=== PATIENT | male | born 1965 | race Caucasian/White ===

== ENCOUNTER 2017-03-13 12:54 | Emergency (ER) | payer MEDICAID ==
[~2017-03-13] VITALS: Ht 175.3 cm; Wt 56.8 kg
[~2017-03-13 12:54] MED LIST: DIVA500T52 PO; OLAN10TA3 PO; PARO20TA24 PO; TRAZ-147 PO
[2017-03-13 12:55] VITALS: BP 132/89
== END 2017-03-13 13:57 | disposition left against medical advice (07) ==
LOC: EMS 12:55
DX: F20.9 Schizophrenia, unspecified (principal); G89.29 Other chronic pain; F31.9 Bipolar disorder, unspecified; J44.9 Chronic obstructive pulmonary disease, unspecified; E11.9 Type 2 diabetes mellitus without complications; F17.210 Nicotine dependence, cigarettes, uncomplicated; F14.90 Cocaine use, unspecified, uncomplicated; F12.90 Cannabis use, unspecified, uncomplicated; F15.90 Other stimulant use, unspecified, uncomplicated; Z88.8 Allergy status to other drugs, medicaments and biological substances
CPT/HCPCS: 99284

== ENCOUNTER 2017-04-11 15:45 | Inpatient (IN) | payer MEDICAID ==
[~2017-04-11] VITALS: Ht 175.3 cm; Wt 55.8 kg
[2017-04-11 16:16] VITALS: BP 134/74
[2017-04-11] MEDS ORDERED: LORazepam 2 MG TABLET PO PRN (16:30)
[2017-04-11] MEDS ORDERED: ZOLPIDEM TARTRATE 10 MG TABLET PO PRN (16:30)
[2017-04-11] MEDS: DIVALPROEX SODIUM 500 MG ER TABLET PO SCH (17:13)
[2017-04-11] MEDS ORDERED: PNEUMOCOCCAL VACCINE POLYVALENT 0.5 ML VIAL [PPSV23] IM ONE (18:15)
[2017-04-12] MEDS ORDERED: MAGNESIUM HYDROXIDE SUSPENSION 30 ML UDCUP PO PRN (07:30)
[2017-04-12] MEDS ORDERED: ALBUTEROL SULFATE HFA 90 MCG/PUFF 8 GM INHALER IH PRN (07:30)
[2017-04-12] MEDS ORDERED: ONDANSETRON HCL 4 MG TABLET PO PRN (07:30)
[2017-04-12] MEDS ORDERED: BENZOCAINE/MENTHOL LOZENGE MM PRN (07:30)
[2017-04-12] MEDS ORDERED: ACETAMINOPHEN 325 MG TABLET PO PRN (07:30)
[2017-04-12] MEDS ORDERED: PETROLATUM,WHITE 71 GM JELLY TP PRN (07:30)
[2017-04-12] MEDS ORDERED: IBUPROFEN 600 MG TABLET PO PRN (07:30)
[2017-04-12] MEDS ORDERED: CloNIDine HCL 0.1 MG TABLET PO PRN (07:30)
[2017-04-12] MEDS ORDERED: LOPERAMIDE HCL 2 MG CAPSULE PO PRN (07:30)
[2017-04-12] MEDS ORDERED: MAG HYDROX/AL HYDROX/SIMETH ES 30 ML SUSPENSION UDCUP PO PRN (07:30)
[2017-04-12 08:17] VITALS: BP 133/92
[2017-04-12] MEDS: NICOTINE 21 MG/24 HOUR PATCH TD SCH (09:00)
[2017-04-12 09:12] LABS: BASOPHILS % (AUTO) 0.7 % (0.0-2.0); EOSINOPHILS % (AUTO) 5.5 % (1.0-6.0); HEMATOCRIT 39.1 % (41-53); LYMPHOCYTES # (AUTO) 1.3 K/uL (1.0-4.8); LYMPHOCYTES % (AUTO) 32.1 % (22.0-44.0); MEAN CORPUSCULAR HEMOGLOBIN 31.1 pg (26.0-34.0); MEAN CORPUSCULAR HGB CONC 33.4 G/dL (31.0-37.0); MEAN CORPUSCULAR VOLUME 93 fL (80-100); MONOCYTES # (AUTO) 0.3 K/uL (0.1-1.0); MONOCYTES % (AUTO) 8.4 % (2.0-9.0); NEUTROPHILS # (AUTO) 2.1 K/uL (1.8-7.7); NEUTROPHILS % (AUTO) 53.3 % (40.0-70.0); PLATELET COUNT (AUTO) 260 K/uL (150-450); RED BLOOD CELL COUNT(AUTO) 4.19 MIL/uL (4.50-5.90); WHITE BLOOD COUNT (AUTO) 3.9 K/uL (4.5-11.0)
[2017-04-12 09:41] LABS: HEMOGLOBIN A1C 5.7 % (4.5-6.2)
[2017-04-12 09:45] LABS: ALANINE AMINOTRANSFERASE 23 U/L (12-78); ALBUMIN 3.3 g/dL (3.4-5.0); ANION GAP 6 mmol/L (8-16); ASPARTATE AMINOTRANSFERASE 17 U/L (15-37); BILIRUBIN,TOTAL 0.2 mg/dL (0.1-1.0); CALCIUM, TOTAL 8.5 mg/dL (8.8-10.5); CARBON DIOXIDE 30 mmol/L (22-29); CHLORIDE 104 mmol/L (98-107); CHOL/HDL RATIO 2.6 (4.2-7.3); CREATININE 0.57 mg/dL (0.60-1.30); GLOMERULAR FILTR. RATE CALC > 60 mL/min (>60); POTASSIUM 4.5 mmol/L (3.5-5.1); SODIUM SERUM 140 mmol/L (136-145); THYROID STIMULATING HORMONE 1.28 uIU/mL (0.36-3.74); UREA NITROGEN, BLOOD 10 mg/dL (7-18)
[2017-04-12] MEDS: DIVALPROEX SODIUM 500 MG ER TABLET PO SCH ×2 (09:47→16:14)
[2017-04-12] MEDS: MULTIVITAMINS WITH MINERALS, THERAPEUTIC TABLET PO SCH (09:47)
[2017-04-12 10:02] LABS: APPEARANCE,URINE CLOUDY (CLEAR); GLUCOSE, URINE (UA) NEGATIVE (NEGATIVE); KETONES,URINE TRACE mg/dL (NEGATIVE); LEUKOCYTE ESTERASE ,URINE NEGATIVE (NEGATIVE); OCCULT BLOOD,URINE NEGATIVE (NEGATIVE); PROTEIN,URINE NEGATIVE (NEGATIVE)
[2017-04-12 10:16] LABS: ADD UA MICROSCOPIC YES
[2017-04-12 12:53] LABS: RBC,URINE None Seen /HPF (0-2); SQUAMOUS EPITHELIAL CELL,UR None Seen /LPF (None Seen); WBC,URINE 0-2 /HPF (0-5)
[2017-04-12 12:54] LABS: CALCIUM OXALATE CRYSTALS,UR Many /LPF (None Seen)
[2017-04-12 16:38] VITALS: BP 126/83
[2017-04-13 01:50] VITALS: BP 136/97
[2017-04-13 08:49] VITALS: BP 129/82
[2017-04-13] MEDS: NICOTINE 21 MG/24 HOUR PATCH TD SCH (09:28)
[2017-04-13] MEDS: DIVALPROEX SODIUM 500 MG ER TABLET PO SCH ×2 (09:28→16:04)
[2017-04-13] MEDS: MULTIVITAMINS WITH MINERALS, THERAPEUTIC TABLET PO SCH (09:28)
[2017-04-13] MEDS: MUPIROCIN CALCIUM 2% 15 GM CREAM TP SCH ×2 (10:30→16:04)
[2017-04-13 16:13] VITALS: BP 120/84
[2017-04-14 01:29] VITALS: BP 137/78
[2017-04-14 08:36] VITALS: BP 118/74
[2017-04-14] MEDS: PARoxetine HCL 20 MG TABLET PO SCH (09:02)
[2017-04-14] MEDS: MULTIVITAMINS WITH MINERALS, THERAPEUTIC TABLET PO SCH (09:02)
[2017-04-14] MEDS: NICOTINE 21 MG/24 HOUR PATCH TD SCH (09:02)
[2017-04-14] MEDS: DIVALPROEX SODIUM 500 MG ER TABLET PO SCH ×2 (09:02→17:18)
[2017-04-14] MEDS: BACITRACIN 28.4 GM OINTMENT TP PRN ×2 (09:03→09:04)
[2017-04-14] MEDS: MUPIROCIN CALCIUM 2% 15 GM CREAM TP SCH ×2 (09:05→17:18)
[2017-04-14 16:24] VITALS: BP 121/86
[2017-04-15 01:07] VITALS: BP 134/79
[2017-04-15 08:19] VITALS: BP 128/76
[2017-04-15] MEDS: MULTIVITAMINS WITH MINERALS, THERAPEUTIC TABLET PO SCH (09:10)
[2017-04-15] MEDS: NICOTINE 21 MG/24 HOUR PATCH TD SCH (09:10)
[2017-04-15] MEDS: DIVALPROEX SODIUM 500 MG ER TABLET PO SCH (09:11)
[2017-04-15] MEDS: PARoxetine HCL 20 MG TABLET PO SCH (09:11)
[2017-04-15] MEDS: MUPIROCIN CALCIUM 2% 15 GM CREAM TP SCH (09:11)
[2017-04-15] MEDS ORDERED: MULT-1203 PO (10:26)
[2017-04-15] MEDS ORDERED: MUPI15CR TP (10:26)
[2017-04-15] MEDS ORDERED: PARO20TA24 PO (10:26)
== END 2017-04-15 10:35 | disposition home or self-care (01) | DRG 754 ==
LOC: B2S 16:23
PROVIDERS: ADMIT Psychiatry & Neurology Child & Adolescent Psychiatry; ATTEND Psychiatry & Neurology Child & Adolescent Psychiatry
PROC: 3E0234Z Introduction of Serum, Toxoid and Vaccine into Muscle, Percutaneous Approach (ICD-10-PCS; principal; 2017-04-11)
DX: F32.9 Major depressive disorder, single episode, unspecified (principal); E44.1 Mild protein-calorie malnutrition; R45.851 Suicidal ideations; F25.0 Schizoaffective disorder, bipolar type; F17.200 Nicotine dependence, unspecified, uncomplicated; Z71.6 Tobacco abuse counseling; G47.00 Insomnia, unspecified; J44.9 Chronic obstructive pulmonary disease, unspecified; K21.9 Gastro-esophageal reflux disease without esophagitis; K59.00 Constipation, unspecified; Z59.0 Homelessness; Z82.5 Family history of asthma and other chronic lower respiratory diseases; Z22.322 Carrier or suspected carrier of Methicillin resistant Staphylococcus aureus; Z88.8 Allergy status to other drugs, medicaments and biological substances; Z23 Encounter for immunization
CPT/HCPCS: 80307; 82306; 83036; 84439; 84443; 87081

== ENCOUNTER 2018-01-20 12:19 | Inpatient (IN) | payer MEDICAID ==
[~2018-01-20 12:19] MED LIST changes: +MULT-1203 PO; +MUPI15CR TP; -OLAN10TA3 PO; -TRAZ-147 PO
[2018-01-20 14:20] VITALS: BP 119/90
[2018-01-20] MEDS ORDERED: LOPERAMIDE HCL 2 MG CAPSULE PO PRN (15:15)
[2018-01-20] MEDS ORDERED: TUBERCULIN, PURIFIED PROTEIN DERIVATIVE 5 TU/0.1 ML SYG ID ONE (15:15)
[2018-01-20] MEDS ORDERED: LORazepam 2 MG TABLET PO PRN (15:15)
[2018-01-20] MEDS ORDERED: ACETAMINOPHEN 325 MG TABLET PO PRN (15:15)
[2018-01-20] MEDS ORDERED: PROMETHAZINE HCL 25 MG TABLET PO PRN (15:15)
[2018-01-20] MEDS ORDERED: OLANZapine 5 MG RAPDIS TABLET PO PRN (15:15)
[2018-01-20] MEDS ORDERED: ZOLPIDEM TARTRATE 10 MG TABLET PO PRN (15:15)
[2018-01-20] MEDS ORDERED: HydrOXYzine PAMOATE 50 MG CAPSULE PO PRN (15:15)
[2018-01-20] MEDS ORDERED: MAGNESIUM HYDROXIDE SUSPENSION 30 ML UDCUP PO PRN (15:15)
[2018-01-20] MEDS ORDERED: MAG HYDROX/AL HYDROX/SIMETH ES 30 ML SUSPENSION UDCUP PO PRN (15:15)
[2018-01-20] MEDS ORDERED: GuaiFENesin/D-METHORPHAN [SUGAR-FREE] 200-20MG/10 ML SYRUP UDCUP PO PRN (15:15)
[2018-01-20] MEDS: THIAMINE HCL 100 MG TABLET PO SCH (16:56)
[2018-01-20] MEDS ORDERED: PNEUMOCOCCAL VACCINE POLYVALENT 0.5 ML VIAL [PPSV23] IM ONE (17:45)
[2018-01-20] MEDS ORDERED: IBUPROFEN 600 MG TABLET PO PRN (18:45)
[2018-01-20] MEDS ORDERED: CloNIDine HCL 0.1 MG TABLET PO PRN (18:45)
[2018-01-20] MEDS ORDERED: BENZOCAINE/MENTHOL LOZENGE MM PRN (18:45)
[2018-01-20] MEDS ORDERED: BACITRACIN 28.4 GM OINTMENT TP PRN (18:45)
[2018-01-20] MEDS ORDERED: PETROLATUM,WHITE 71 GM JELLY TP PRN (18:45)
[2018-01-20] MEDS ORDERED: ALBUTEROL SULFATE HFA 90 MCG/PUFF 8 GM INHALER IH PRN ×2 (18:45)
[2018-01-20] MEDS ORDERED: ONDANSETRON HCL 4 MG TABLET PO PRN (18:45)
[2018-01-20] MEDS: DIVALPROEX SODIUM 500 MG ER TABLET PO SCH (20:18)
[2018-01-20] MEDS ORDERED: OLANZapine 5 MG RAPDIS TABLET PO SCH (21:00)
[2018-01-21 06:17] VITALS: BP 126/82
[2018-01-21 08:32] LABS: BASOPHILS % (AUTO) 1.8 % (0.0-2.0); HEMATOCRIT 39.7 % (41-53); HEMOGLOBIN 13.4 g/dL (13.5-17.5); LYMPHOCYTES # (AUTO) 1.4 K/uL (1.0-4.8); LYMPHOCYTES % (AUTO) 26.6 % (22.0-44.0); MEAN CORPUSCULAR HEMOGLOBIN 30.4 pg (26.0-34.0); MEAN CORPUSCULAR HGB CONC 33.9 G/dL (31.0-37.0); MEAN CORPUSCULAR VOLUME 90 fL (80-100); MONOCYTES # (AUTO) 0.5 K/uL (0.1-1.0); MONOCYTES % (AUTO) 9.2 % (2.0-9.0); NEUTROPHILS # (AUTO) 2.9 K/uL (1.8-7.7); NEUTROPHILS % (AUTO) 56.4 % (40.0-70.0); PLATELET COUNT (AUTO) 277 K/uL (150-450); RED BLOOD CELL COUNT(AUTO) 4.42 MIL/uL (4.50-5.90); RED CELL DISTRIBUTION WIDTH 14.6 % (11.5-14.5)
[2018-01-21] MEDS: NALTREXONE HCL 50 MG TABLET PO SCH (08:45)
[2018-01-21] MEDS: OMEPRAZOLE 20 MG CAPSULE PO SCH (08:45)
[2018-01-21] MEDS: DOCUSATE SODIUM 100 MG CAPSULE PO SCH (08:45)
[2018-01-21] MEDS: THIAMINE HCL 100 MG TABLET PO SCH ×2 (08:45→16:19)
[2018-01-21] MEDS: FOLIC ACID 1 MG TABLET PO SCH (08:45)
[2018-01-21] MEDS: PARoxetine HCL 20 MG TABLET PO SCH (08:45)
[2018-01-21] MEDS: MULTIVITAMINS WITH MINERALS, THERAPEUTIC TABLET PO SCH (08:45)
[2018-01-21 08:46] LABS: HEMOGLOBIN A1C 6.2 % (4.5-6.2)
[2018-01-21] MEDS: MUPIROCIN CALCIUM 2% 22 GM OINTMENT NASAL SCH ×2 (08:46→16:48)
[2018-01-21 08:47] VITALS: BP 138/80
[2018-01-21 09:09] LABS: ALANINE AMINOTRANSFERASE 24 U/L (12-78); ALBUMIN 3.2 g/dL (3.4-5.0); ALKALINE PHOSPHATASE 93 U/L (46-116); ANION GAP 6 mmol/L (8-16); ASPARTATE AMINOTRANSFERASE 15 U/L (15-37); CARBON DIOXIDE 31 mmol/L (22-29); CHLORIDE 104 mmol/L (98-107); CHOL/HDL RATIO 2.9 (4.2-7.3); CHOLESTEROL 134 mg/dL (131-200); CREATININE 0.61 mg/dL (0.60-1.30); FREE T4 (FREE THYROXINE) 0.85 ng/dL (0.76-1.46); GLOMERULAR FILTR. RATE CALC > 60 mL/min (>60); GLUCOSE,RANDOM 91 mg/dL (70-110); HDL CHOLESTEROL 47 mg/dL (40-60); LDL CHOL (CALC.) 80 mg/dL (0-130); POTASSIUM 4.4 mmol/L (3.5-5.1); SODIUM SERUM 141 mmol/L (136-145); THYROID STIMULATING HORMONE 3.33 uIU/mL (0.36-3.74); TOTAL PROTEIN, SERUM 6.7 g/dL (6.4-8.2); TRIGLYCERIDES 35 mg/dL (15-150); UREA NITROGEN, BLOOD 13 mg/dL (7-18)
[2018-01-21 09:27] LABS: BILIRUBIN,TOTAL < 0.1 mg/dL (0.1-1.0)
[2018-01-21 16:22] VITALS: BP 131/71
[2018-01-21] MEDS: DIVALPROEX SODIUM 500 MG ER TABLET PO SCH (20:24)
[2018-01-21] MEDS: OLANZapine 10 MG RAPDIS TABLET PO SCH (20:24)
[2018-01-22 04:56] VITALS: BP 134/76
[2018-01-22 08:08] VITALS: BP 130/80
[2018-01-22] MEDS: MULTIVITAMINS WITH MINERALS, THERAPEUTIC TABLET PO SCH (08:55)
[2018-01-22] MEDS: OMEPRAZOLE 20 MG CAPSULE PO SCH (08:56)
[2018-01-22] MEDS: THIAMINE HCL 100 MG TABLET PO SCH ×2 (08:56→16:07)
[2018-01-22] MEDS: DOCUSATE SODIUM 100 MG CAPSULE PO SCH (08:56)
[2018-01-22] MEDS: NALTREXONE HCL 50 MG TABLET PO SCH (08:56)
[2018-01-22] MEDS: PARoxetine HCL 20 MG TABLET PO SCH (08:56)
[2018-01-22] MEDS: MUPIROCIN CALCIUM 2% 22 GM OINTMENT NASAL SCH ×2 (08:56→16:08)
[2018-01-22] MEDS: FOLIC ACID 1 MG TABLET PO SCH (08:56)
[2018-01-22 16:52] VITALS: BP 135/95
[2018-01-22] MEDS: DIVALPROEX SODIUM 250 MG ER TABLET PO SCH (20:40)
[2018-01-22] MEDS: DIVALPROEX SODIUM 500 MG ER TABLET PO SCH (20:41)
[2018-01-22] MEDS: OLANZapine 10 MG RAPDIS TABLET PO SCH (20:41)
[2018-01-23 05:45] VITALS: BP 124/80
[2018-01-23] MEDS: PARoxetine HCL 20 MG TABLET PO SCH (08:40)
[2018-01-23] MEDS: OMEPRAZOLE 20 MG CAPSULE PO SCH (08:41)
[2018-01-23] MEDS: FOLIC ACID 1 MG TABLET PO SCH (08:41)
[2018-01-23] MEDS: DOCUSATE SODIUM 100 MG CAPSULE PO SCH (08:41)
[2018-01-23] MEDS: THIAMINE HCL 100 MG TABLET PO SCH ×2 (08:41→16:14)
[2018-01-23] MEDS: MULTIVITAMINS WITH MINERALS, THERAPEUTIC TABLET PO SCH (08:41)
[2018-01-23] MEDS: NALTREXONE HCL 50 MG TABLET PO SCH (08:41)
[2018-01-23 08:50] VITALS: BP 129/87
[2018-01-23] MEDS: MUPIROCIN CALCIUM 2% 22 GM OINTMENT NASAL SCH ×2 (10:16→16:14)
[2018-01-23 16:09] VITALS: BP 131/82
[2018-01-23] MEDS: OLANZapine 10 MG RAPDIS TABLET PO SCH (20:32)
[2018-01-23] MEDS: DIVALPROEX SODIUM 500 MG ER TABLET PO SCH (20:32)
[2018-01-23] MEDS: DIVALPROEX SODIUM 250 MG ER TABLET PO SCH (20:32)
[2018-01-24 05:52] VITALS: BP 126/82
[2018-01-24 08:44] VITALS: BP 116/63
[2018-01-24] MEDS: NALTREXONE HCL 50 MG TABLET PO SCH (09:46)
[2018-01-24] MEDS: THIAMINE HCL 100 MG TABLET PO SCH ×2 (09:46→16:37)
[2018-01-24] MEDS: FOLIC ACID 1 MG TABLET PO SCH (09:46)
[2018-01-24] MEDS: MULTIVITAMINS WITH MINERALS, THERAPEUTIC TABLET PO SCH (09:46)
[2018-01-24] MEDS: DOCUSATE SODIUM 100 MG CAPSULE PO SCH (09:47)
[2018-01-24] MEDS: OMEPRAZOLE 20 MG CAPSULE PO SCH (09:47)
[2018-01-24] MEDS: PARoxetine HCL 20 MG TABLET PO SCH (09:48)
[2018-01-24] MEDS: MUPIROCIN CALCIUM 2% 22 GM OINTMENT NASAL SCH ×2 (11:09→16:37)
[2018-01-24 16:07] VITALS: BP 132/78
[2018-01-24] MEDS: DIVALPROEX SODIUM 250 MG ER TABLET PO SCH (20:11)
[2018-01-24] MEDS: DIVALPROEX SODIUM 500 MG ER TABLET PO SCH (20:11)
[2018-01-24] MEDS: OLANZapine 10 MG RAPDIS TABLET PO SCH (20:12)
[2018-01-25 06:12] VITALS: BP 140/89
[2018-01-25 08:08] VITALS: BP 123/73
[2018-01-25] MEDS: MUPIROCIN CALCIUM 2% 22 GM OINTMENT NASAL SCH ×2 (09:27→16:10)
[2018-01-25] MEDS: PARoxetine HCL 20 MG TABLET PO SCH (09:28)
[2018-01-25] MEDS: THIAMINE HCL 100 MG TABLET PO SCH ×2 (09:28→16:09)
[2018-01-25] MEDS: MULTIVITAMINS WITH MINERALS, THERAPEUTIC TABLET PO SCH (09:28)
[2018-01-25] MEDS: DOCUSATE SODIUM 100 MG CAPSULE PO SCH (09:28)
[2018-01-25] MEDS: FOLIC ACID 1 MG TABLET PO SCH (09:28)
[2018-01-25] MEDS: OMEPRAZOLE 20 MG CAPSULE PO SCH (09:28)
[2018-01-25] MEDS: NALTREXONE HCL 50 MG TABLET PO SCH (09:29)
[2018-01-25 16:01] VITALS: BP 113/68
[2018-01-25] MEDS: DIVALPROEX SODIUM 250 MG ER TABLET PO SCH (20:10)
[2018-01-25] MEDS: OLANZapine 10 MG RAPDIS TABLET PO SCH (20:10)
[2018-01-25] MEDS: DIVALPROEX SODIUM 500 MG ER TABLET PO SCH (20:10)
[2018-01-26 06:52] VITALS: BP 110/68
[2018-01-26 08:25] VITALS: BP 120/73
[2018-01-26] MEDS: MUPIROCIN CALCIUM 2% 22 GM OINTMENT NASAL SCH ×2 (08:49→16:19)
[2018-01-26] MEDS: PARoxetine HCL 20 MG TABLET PO SCH (08:50)
[2018-01-26] MEDS: THIAMINE HCL 100 MG TABLET PO SCH ×2 (08:50→16:19)
[2018-01-26] MEDS: OMEPRAZOLE 20 MG CAPSULE PO SCH (08:50)
[2018-01-26] MEDS: MULTIVITAMINS WITH MINERALS, THERAPEUTIC TABLET PO SCH (08:50)
[2018-01-26] MEDS: DOCUSATE SODIUM 100 MG CAPSULE PO SCH (08:50)
[2018-01-26] MEDS: NALTREXONE HCL 50 MG TABLET PO SCH (08:51)
[2018-01-26] MEDS: FOLIC ACID 1 MG TABLET PO SCH (08:51)
[2018-01-26 16:17] VITALS: BP 123/82
[2018-01-26] MEDS: DIVALPROEX SODIUM 500 MG ER TABLET PO SCH (20:30)
[2018-01-26] MEDS: DIVALPROEX SODIUM 250 MG ER TABLET PO SCH (20:30)
[2018-01-26] MEDS: OLANZapine 10 MG RAPDIS TABLET PO SCH (20:30)
[2018-01-27 05:17] VITALS: BP 125/76
[2018-01-27 08:00] VITALS: BP 121/75
[2018-01-27] MEDS: DOCUSATE SODIUM 100 MG CAPSULE PO SCH (09:53)
[2018-01-27] MEDS: THIAMINE HCL 100 MG TABLET PO SCH ×2 (09:53→16:49)
[2018-01-27] MEDS: MULTIVITAMINS WITH MINERALS, THERAPEUTIC TABLET PO SCH (09:54)
[2018-01-27] MEDS: OMEPRAZOLE 20 MG CAPSULE PO SCH (09:54)
[2018-01-27] MEDS: PARoxetine HCL 20 MG TABLET PO SCH (09:54)
[2018-01-27] MEDS: NALTREXONE HCL 50 MG TABLET PO SCH (09:54)
[2018-01-27] MEDS: FOLIC ACID 1 MG TABLET PO SCH (09:54)
[2018-01-27 16:26] VITALS: BP 125/69
[2018-01-27] MEDS: OLANZapine 10 MG RAPDIS TABLET PO SCH (20:16)
[2018-01-27] MEDS: DIVALPROEX SODIUM 250 MG ER TABLET PO SCH (20:16)
[2018-01-27] MEDS: DIVALPROEX SODIUM 500 MG ER TABLET PO SCH (20:16)
[2018-01-28 07:04] VITALS: BP 140/80
[2018-01-28 08:39] VITALS: BP 125/77
[2018-01-28] MEDS: OMEPRAZOLE 20 MG CAPSULE PO SCH (08:42)
[2018-01-28] MEDS: THIAMINE HCL 100 MG TABLET PO SCH ×2 (08:42→16:12)
[2018-01-28] MEDS: NALTREXONE HCL 50 MG TABLET PO SCH (08:42)
[2018-01-28] MEDS: FOLIC ACID 1 MG TABLET PO SCH (08:42)
[2018-01-28] MEDS: MULTIVITAMINS WITH MINERALS, THERAPEUTIC TABLET PO SCH (08:42)
[2018-01-28] MEDS: DOCUSATE SODIUM 100 MG CAPSULE PO SCH (08:43)
[2018-01-28] MEDS: PARoxetine HCL 20 MG TABLET PO SCH (08:43)
[2018-01-28] MEDS ORDERED: PARO-37 PO (15:07)
[2018-01-28] MEDS ORDERED: OLAN10TA22 PO (15:07)
[2018-01-28] MEDS ORDERED: DIVA250T45 PO (15:07)
[2018-01-28] MEDS ORDERED: NALT50TA PO (15:07)
[2018-01-28] MEDS ORDERED: DIVA500T52 PO (15:07)
[2018-01-28 16:07] VITALS: BP 127/70
[2018-01-28] MEDS: DIVALPROEX SODIUM 250 MG ER TABLET PO SCH (20:02)
[2018-01-28] MEDS: OLANZapine 10 MG RAPDIS TABLET PO SCH (20:02)
[2018-01-28] MEDS: DIVALPROEX SODIUM 500 MG ER TABLET PO SCH (20:02)
[2018-01-29 06:03] VITALS: BP 129/86
[2018-01-29 08:28] VITALS: BP 117/79
[2018-01-29] MEDS: FOLIC ACID 1 MG TABLET PO SCH (08:53)
[2018-01-29] MEDS: OMEPRAZOLE 20 MG CAPSULE PO SCH (08:53)
[2018-01-29] MEDS: PARoxetine HCL 20 MG TABLET PO SCH (08:53)
[2018-01-29] MEDS: DOCUSATE SODIUM 100 MG CAPSULE PO SCH (08:53)
[2018-01-29] MEDS: THIAMINE HCL 100 MG TABLET PO SCH (08:53)
[2018-01-29] MEDS: NALTREXONE HCL 50 MG TABLET PO SCH (08:54)
[2018-01-29] MEDS: MULTIVITAMINS WITH MINERALS, THERAPEUTIC TABLET PO SCH (08:54)
== END 2018-01-29 13:15 | disposition home or self-care (01) | DRG 750 ==
LOC: B2S 14:26
PROVIDERS: ADMIT Psychiatry & Neurology Psychiatry; ATTEND Psychiatry & Neurology Psychiatry
DX: F25.9 Schizoaffective disorder, unspecified (principal); E44.1 Mild protein-calorie malnutrition; R45.851 Suicidal ideations; J44.9 Chronic obstructive pulmonary disease, unspecified; F17.210 Nicotine dependence, cigarettes, uncomplicated; G47.00 Insomnia, unspecified; K21.9 Gastro-esophageal reflux disease without esophagitis; K59.00 Constipation, unspecified; Z59.0 Homelessness; Z79.899 Other long term (current) drug therapy; Z82.5 Family history of asthma and other chronic lower respiratory diseases; Z91.19 Patient's noncompliance with other medical treatment and regimen; Z91.5 Personal history of self-harm; Z88.8 Allergy status to other drugs, medicaments and biological substances
CPT/HCPCS: 83036; 84439; 84443; 86592; 87081

== ENCOUNTER 2018-02-13 15:22 | Inpatient (IN) | payer MEDICAID ==
[~2018-02-13] VITALS: Ht 175.3 cm; Wt 57.6 kg
[~2018-02-13 15:22] MED LIST changes: +DIVA250T45 PO; -MULT-1203 PO; -MUPI15CR TP; +NALT50TA PO; +OLAN10TA22 PO; +PARO-37 PO; -PARO20TA24 PO
[2018-02-13 16:21] LABS: BASOPHILS % (AUTO) 0.8 % (0.0-2.0); HEMATOCRIT 35.4 % (41-53); HEMOGLOBIN 11.9 g/dL (13.5-17.5); LYMPHOCYTES # (AUTO) 0.9 K/uL (1.0-4.8); LYMPHOCYTES % (AUTO) 21.5 % (22.0-44.0); MEAN CORPUSCULAR HEMOGLOBIN 30.4 pg (26.0-34.0); MEAN CORPUSCULAR HGB CONC 33.5 G/dL (31.0-37.0); MEAN CORPUSCULAR VOLUME 91 fL (80-100); MONOCYTES # (AUTO) 0.3 K/uL (0.1-1.0); MONOCYTES % (AUTO) 7.6 % (2.0-9.0); NEUTROPHILS # (AUTO) 2.9 K/uL (1.8-7.7); NEUTROPHILS % (AUTO) 66.1 % (40.0-70.0); PLATELET COUNT (AUTO) 254 K/uL (150-450)
[2018-02-13 16:31] LABS: ANION GAP 10 mmol/L (8-16); CALCIUM, TOTAL 8.9 mg/dL (8.8-10.5); CARBON DIOXIDE 27 mmol/L (22-29); CHLORIDE 102 mmol/L (98-107); CREATININE 0.73 mg/dL (0.60-1.30); GLOMERULAR FILTR. RATE CALC > 60 mL/min (>60); GLUCOSE,RANDOM 117 mg/dL (70-110); POTASSIUM 4.2 mmol/L (3.5-5.1); SODIUM SERUM 139 mmol/L (136-145); UREA NITROGEN, BLOOD 11 mg/dL (7-18)
[2018-02-13 16:37] LABS: ALANINE AMINOTRANSFERASE 34 U/L (12-78); ALBUMIN 3.4 g/dL (3.4-5.0); ALKALINE PHOSPHATASE 95 U/L (46-116); ASPARTATE AMINOTRANSFERASE 22 U/L (15-37); BILIRUBIN,TOTAL 0.3 mg/dL (0.1-1.0); TOTAL PROTEIN, SERUM 6.8 g/dL (6.4-8.2)
[2018-02-13 16:43] LABS: AMPHET/METH SCREEN,URINE NEGATIVE (NEGATIVE); BARBITURATE SCREEN, URINE NEGATIVE (NEGATIVE); BENZODIAZEPINES SCREEN,URINE NEGATIVE (NEGATIVE); CANNABINOID SCREEN,URINE POSITIVE (NEGATIVE); COCAINE SCREEN,URINE NEGATIVE (NEGATIVE); METHADONE SCREEN, URINE NEGATIVE (NEGATIVE); OPIATE SCREEN,URINE NEGATIVE (NEGATIVE); PHENCYCLIDINE SCREEN,URINE NEGATIVE (NEGATIVE)
[2018-02-13] MEDS ORDERED: LORazepam 2 MG TABLET PO PRN ×2 (18:00→19:00)
[2018-02-13] MEDS ORDERED: ZOLPIDEM TARTRATE 10 MG TABLET PO PRN ×2 (18:00→19:00)
[2018-02-13] MEDS ORDERED: LORazepam 2 MG TABLET PO ONE (18:15)
[2018-02-13] MEDS ORDERED: OLANZapine 5 MG RAPDIS TABLET PO PRN (19:00)
[2018-02-13 19:31] LABS: VALPROIC ACID < 3 mcg/mL (50-100)
[2018-02-13 20:03] VITALS: BP 128/87
[2018-02-13] MEDS: DIVALPROEX SODIUM 250 MG ER TABLET PO SCH (21:04)
[2018-02-13] MEDS: OLANZapine 7.5 MG TABLET PO SCH (21:05)
[2018-02-13] MEDS ORDERED: ONDANSETRON HCL 4 MG TABLET PO PRN (21:30)
[2018-02-13] MEDS ORDERED: LOPERAMIDE HCL 2 MG CAPSULE PO PRN (21:30)
[2018-02-13] MEDS ORDERED: PETROLATUM,WHITE 71 GM JELLY TP PRN (21:30)
[2018-02-13] MEDS ORDERED: ALBUTEROL SULFATE HFA 90 MCG/PUFF 8 GM INHALER IH PRN (21:30)
[2018-02-13] MEDS ORDERED: BACITRACIN 28.4 GM OINTMENT TP PRN (21:30)
[2018-02-13] MEDS ORDERED: MAG HYDROX/AL HYDROX/SIMETH ES 30 ML SUSPENSION UDCUP PO PRN (21:30)
[2018-02-13] MEDS ORDERED: BENZOCAINE/MENTHOL LOZENGE MM PRN (21:30)
[2018-02-13] MEDS ORDERED: CloNIDine HCL 0.1 MG TABLET PO PRN (21:30)
[2018-02-13] MEDS ORDERED: ACETAMINOPHEN 325 MG TABLET PO PRN (21:30)
[2018-02-13] MEDS ORDERED: MAGNESIUM HYDROXIDE SUSPENSION 30 ML UDCUP PO PRN (21:30)
[2018-02-13] MEDS ORDERED: IBUPROFEN 600 MG TABLET PO PRN (21:30)
[2018-02-13 22:06] LABS: APPEARANCE,URINE CLEAR (CLEAR); BILIRUBIN,URINE NEGATIVE (NEGATIVE); GLUCOSE, URINE (UA) NEGATIVE (NEGATIVE); KETONES,URINE NEGATIVE (NEGATIVE); LEUKOCYTE ESTERASE ,URINE NEGATIVE (NEGATIVE); NITRATE,URINE NEGATIVE (NEGATIVE); OCCULT BLOOD,URINE NEGATIVE (NEGATIVE); PROTEIN,URINE NEGATIVE (NEGATIVE); UROBILINOGEN,URINE 0.2 mg/dL (<=1.0)
[2018-02-14] MEDS: DOCUSATE SODIUM 100 MG CAPSULE PO SCH (09:01)
[2018-02-14] MEDS: OMEPRAZOLE 20 MG CAPSULE PO SCH (09:01)
[2018-02-14] MEDS: PARoxetine HCL 20 MG TABLET PO SCH (09:01)
[2018-02-14 10:08] VITALS: BP 164/95
[2018-02-14 17:10] VITALS: BP 104/68
[2018-02-14] MEDS: DIVALPROEX SODIUM 250 MG ER TABLET PO SCH (21:03)
[2018-02-14] MEDS: OLANZapine 7.5 MG TABLET PO SCH (21:04)
[2018-02-15 08:49] VITALS: BP 143/100
[2018-02-15] MEDS: DOCUSATE SODIUM 100 MG CAPSULE PO SCH (10:28)
[2018-02-15] MEDS: OMEPRAZOLE 20 MG CAPSULE PO SCH (10:28)
[2018-02-15] MEDS: NALTREXONE HCL 50 MG TABLET PO SCH (10:29)
[2018-02-15] MEDS: PARoxetine HCL 20 MG TABLET PO SCH (10:29)
[2018-02-15 16:50] VITALS: BP 123/78
[2018-02-15] MEDS: MUPIROCIN CALCIUM 2% 15 GM CREAM TP SCH (17:21)
[2018-02-15] MEDS: DIVALPROEX SODIUM 250 MG ER TABLET PO SCH (20:59)
[2018-02-15] MEDS: OLANZapine 7.5 MG TABLET PO SCH (20:59)
[2018-02-16 08:15] VITALS: BP 120/73
[2018-02-16] MEDS: PARoxetine HCL 20 MG TABLET PO SCH (09:52)
[2018-02-16] MEDS: OMEPRAZOLE 20 MG CAPSULE PO SCH (09:52)
[2018-02-16] MEDS: NALTREXONE HCL 50 MG TABLET PO SCH (09:52)
[2018-02-16] MEDS: MUPIROCIN CALCIUM 2% 15 GM CREAM TP SCH ×2 (09:52→16:53)
[2018-02-16] MEDS: DOCUSATE SODIUM 100 MG CAPSULE PO SCH (09:52)
[2018-02-16 16:41] VITALS: BP 125/75
[2018-02-16] MEDS: DIVALPROEX SODIUM 250 MG ER TABLET PO SCH (20:08)
[2018-02-16] MEDS: OLANZapine 7.5 MG TABLET PO SCH (20:09)
[2018-02-17 08:05] VITALS: BP 142/82
[2018-02-17] MEDS: MUPIROCIN CALCIUM 2% 15 GM CREAM TP SCH ×2 (09:00→16:30)
[2018-02-17] MEDS: OMEPRAZOLE 20 MG CAPSULE PO SCH (09:35)
[2018-02-17] MEDS: PARoxetine HCL 20 MG TABLET PO SCH (09:35)
[2018-02-17] MEDS: NALTREXONE HCL 50 MG TABLET PO SCH (09:35)
[2018-02-17] MEDS: DOCUSATE SODIUM 100 MG CAPSULE PO SCH (09:36)
[2018-02-17 18:01] VITALS: BP 138/78
[2018-02-17] MEDS: OLANZapine 10 MG TABLET PO SCH (20:51)
[2018-02-17] MEDS: DIVALPROEX SODIUM 250 MG ER TABLET PO SCH (20:51)
[2018-02-18 08:05] VITALS: BP 133/86
[2018-02-18] MEDS: MUPIROCIN CALCIUM 2% 15 GM CREAM TP SCH ×2 (09:00→16:43)
[2018-02-18] MEDS: NALTREXONE HCL 50 MG TABLET PO SCH (09:32)
[2018-02-18] MEDS: PARoxetine HCL 20 MG TABLET PO SCH (09:33)
[2018-02-18] MEDS: OMEPRAZOLE 20 MG CAPSULE PO SCH (09:33)
[2018-02-18] MEDS: DOCUSATE SODIUM 100 MG CAPSULE PO SCH (09:33)
[2018-02-18 18:18] VITALS: BP 133/76
[2018-02-18] MEDS: OLANZapine 10 MG TABLET PO SCH (20:38)
[2018-02-18] MEDS: DIVALPROEX SODIUM 250 MG ER TABLET PO SCH (20:39)
[2018-02-19] MEDS ORDERED: DIVA250T45 PO (02:59)
[2018-02-19] MEDS ORDERED: PARO20TA24 PO (03:00)
[2018-02-19] MEDS ORDERED: OLAN10TA3 PO (03:02)
[2018-02-19] MEDS: MUPIROCIN CALCIUM 2% 15 GM CREAM TP SCH (09:00)
[2018-02-19] MEDS: PARoxetine HCL 20 MG TABLET PO SCH (09:21)
[2018-02-19] MEDS: NALTREXONE HCL 50 MG TABLET PO SCH (09:21)
[2018-02-19] MEDS: DOCUSATE SODIUM 100 MG CAPSULE PO SCH (09:21)
[2018-02-19] MEDS: OMEPRAZOLE 20 MG CAPSULE PO SCH (09:21)
[2018-02-19 10:40] VITALS: BP 132/89
== END 2018-02-19 12:00 | disposition home or self-care (01) | DRG 750 ==
LOC: EMS 15:24 → 3EI 18:53
PROVIDERS: ADMIT Psychiatry & Neurology Psychiatry; ATTEND Psychiatry & Neurology Psychiatry
DX: F25.9 Schizoaffective disorder, unspecified (principal); E44.1 Mild protein-calorie malnutrition; E11.9 Type 2 diabetes mellitus without complications; F17.210 Nicotine dependence, cigarettes, uncomplicated; D64.9 Anemia, unspecified; J44.9 Chronic obstructive pulmonary disease, unspecified; F14.10 Cocaine abuse, uncomplicated; S00.83XA Contusion of other part of head, initial encounter; F12.90 Cannabis use, unspecified, uncomplicated; K59.00 Constipation, unspecified; K21.9 Gastro-esophageal reflux disease without esophagitis; F15.90 Other stimulant use, unspecified, uncomplicated; G47.00 Insomnia, unspecified; G89.4 Chronic pain syndrome; Z59.0 Homelessness; Z82.5 Family history of asthma and other chronic lower respiratory diseases; Z91.14 Patient's other noncompliance with medication regimen; Z91.19 Patient's noncompliance with other medical treatment and regimen; Z88.8 Allergy status to other drugs, medicaments and biological substances; Z79.899 Other long term (current) drug therapy; Z71.6 Tobacco abuse counseling; Z71.51 Drug abuse counseling and surveillance of drug abuser; Z71.41 Alcohol abuse counseling and surveillance of alcoholic; Z86.14 Personal history of Methicillin resistant Staphylococcus aureus infection; W19.XXXA Unspecified fall, initial encounter; Y93.89 Activity, other specified; Y92.89 Other specified places as the place of occurrence of the external cause; Y99.8 Other external cause status
CPT/HCPCS: 87081; 99285; G0480

== ENCOUNTER 2018-02-24 18:36 | Inpatient (IN) | payer MEDICAID ==
[~2018-02-24] VITALS: Ht 175.3 cm; Wt 60.5 kg
[~2018-02-24 18:36] MED LIST changes: -DIVA500T52 PO; -OLAN10TA22 PO; +OLAN10TA3 PO; -PARO-37 PO; +PARO20TA24 PO
[2018-02-24] MEDS ORDERED: LORazepam 1 MG TABLET PO PRN (19:30)
[2018-02-24] MEDS ORDERED: QUEtiapine FUMARATE 100 MG TABLET PO PRN (19:30)
[2018-02-24] MEDS ORDERED: ZOLPIDEM TARTRATE 10 MG TABLET PO PRN (19:30)
[2018-02-24] MEDS ORDERED: PNEUMOCOCCAL VACCINE POLYVALENT 0.5 ML VIAL [PPSV23] IM ONE (20:00)
[2018-02-24 20:34] VITALS: BP 110/65
[2018-02-24] MEDS ORDERED: OLANZapine 5 MG TABLET PO SCH (21:00)
[2018-02-24] MEDS ORDERED: DIVALPROEX SODIUM 500 MG ER TABLET PO SCH (21:00)
[2018-02-24] MEDS ORDERED: ONDANSETRON HCL 4 MG TABLET PO PRN (21:15)
[2018-02-24] MEDS ORDERED: LOPERAMIDE HCL 2 MG CAPSULE PO PRN (21:15)
[2018-02-24] MEDS ORDERED: BENZOCAINE/MENTHOL LOZENGE MM PRN (21:15)
[2018-02-24] MEDS ORDERED: CloNIDine HCL 0.1 MG TABLET PO PRN (21:15)
[2018-02-24] MEDS ORDERED: IBUPROFEN 600 MG TABLET PO PRN (21:15)
[2018-02-24] MEDS ORDERED: ACETAMINOPHEN 325 MG TABLET PO PRN (21:15)
[2018-02-24] MEDS ORDERED: BACITRACIN 28.4 GM OINTMENT TP PRN (21:15)
[2018-02-24] MEDS ORDERED: MAGNESIUM HYDROXIDE SUSPENSION 30 ML UDCUP PO PRN (21:15)
[2018-02-24] MEDS ORDERED: MAG HYDROX/AL HYDROX/SIMETH ES 30 ML SUSPENSION UDCUP PO PRN (21:15)
[2018-02-24] MEDS ORDERED: PETROLATUM,WHITE 71 GM JELLY TP PRN (21:15)
[2018-02-24] MEDS ORDERED: ALBUTEROL SULFATE HFA 90 MCG/PUFF 8 GM INHALER IH PRN (21:15)
[2018-02-25 06:14] VITALS: BP 120/86
[2018-02-25 09:00] VITALS: BP 123/76
[2018-02-25] MEDS ORDERED: LOPERAMIDE HCL 2 MG CAPSULE PO PRN (10:00)
[2018-02-25] MEDS ORDERED: HydrOXYzine PAMOATE 50 MG CAPSULE PO PRN (10:00)
[2018-02-25] MEDS ORDERED: GuaiFENesin/D-METHORPHAN [SUGAR-FREE] 200-20MG/10 ML SYRUP UDCUP PO PRN (10:00)
[2018-02-25] MEDS: OMEPRAZOLE 20 MG CAPSULE PO SCH (10:11)
[2018-02-25] MEDS: NALTREXONE HCL 50 MG TABLET PO SCH (10:11)
[2018-02-25] MEDS: PARoxetine HCL 20 MG TABLET PO SCH (10:12)
[2018-02-25] MEDS: DOCUSATE SODIUM 100 MG CAPSULE PO SCH (10:12)
[2018-02-25] MEDS: MUPIROCIN CALCIUM 2% 22 GM OINTMENT NASAL SCH ×2 (10:13→16:12)
[2018-02-25] MEDS: THIAMINE HCL 100 MG TABLET PO SCH (16:12)
[2018-02-25 16:34] VITALS: BP 117/60
[2018-02-25] MEDS: DIVALPROEX SODIUM 500 MG ER TABLET PO SCH (20:51)
[2018-02-25] MEDS ORDERED: OLANZapine 7.5 MG TABLET PO SCH (21:00)
[2018-02-26 06:21] VITALS: BP 117/71
[2018-02-26 08:40] VITALS: BP 118/71
[2018-02-26] MEDS: FOLIC ACID 1 MG TABLET PO SCH (09:30)
[2018-02-26] MEDS: OMEPRAZOLE 20 MG CAPSULE PO SCH (09:30)
[2018-02-26] MEDS: DOCUSATE SODIUM 100 MG CAPSULE PO SCH (09:30)
[2018-02-26] MEDS: MULTIVITAMINS WITH MINERALS, THERAPEUTIC TABLET PO SCH (09:30)
[2018-02-26] MEDS: THIAMINE HCL 100 MG TABLET PO SCH ×2 (09:30→17:10)
[2018-02-26] MEDS: MUPIROCIN CALCIUM 2% 22 GM OINTMENT NASAL SCH ×2 (09:32→17:10)
[2018-02-26] MEDS: PARoxetine HCL 20 MG TABLET PO SCH (09:50)
[2018-02-26] MEDS: NALTREXONE HCL 50 MG TABLET PO SCH (10:05)
[2018-02-26 19:52] VITALS: BP 131/79
[2018-02-26] MEDS: DIVALPROEX SODIUM 500 MG ER TABLET PO SCH (21:28)
[2018-02-26] MEDS: OLANZapine 10 MG TABLET PO SCH (21:29)
[2018-02-27 02:29] VITALS: BP 118/77
[2018-02-27 08:48] VITALS: BP 138/88
[2018-02-27 09:16] LABS: BASOPHILS % (AUTO) 0.7 % (0.0-2.0); EOSINOPHILS % (AUTO) 7.6 % (1.0-6.0); HEMATOCRIT 40.3 % (41-53); HEMOGLOBIN 13.6 g/dL (13.5-17.5); LYMPHOCYTES # (AUTO) 1.9 K/uL (1.0-4.8); LYMPHOCYTES % (AUTO) 39.4 % (22.0-44.0); MEAN CORPUSCULAR HEMOGLOBIN 31.3 pg (26.0-34.0); MEAN CORPUSCULAR HGB CONC 33.6 G/dL (31.0-37.0); MEAN CORPUSCULAR VOLUME 93 fL (80-100); MONOCYTES # (AUTO) 0.3 K/uL (0.1-1.0); MONOCYTES % (AUTO) 6.2 % (2.0-9.0); NEUTROPHILS # (AUTO) 2.2 K/uL (1.8-7.7); NEUTROPHILS % (AUTO) 46.1 % (40.0-70.0); PLATELET COUNT (AUTO) 262 K/uL (150-450); RED BLOOD CELL COUNT(AUTO) 4.33 MIL/uL (4.50-5.90); RED CELL DISTRIBUTION WIDTH 14.9 % (11.5-14.5)
[2018-02-27 09:25] LABS: HEMOGLOBIN A1C 5.6 % (4.5-6.2)
[2018-02-27 09:55] LABS: ALANINE AMINOTRANSFERASE 22 U/L (12-78); ALBUMIN 3.2 g/dL (3.4-5.0); ALKALINE PHOSPHATASE 73 U/L (46-116); ANION GAP 5 mmol/L (8-16); ASPARTATE AMINOTRANSFERASE 14 U/L (15-37); BILIRUBIN,TOTAL 0.3 mg/dL (0.1-1.0); CALCIUM, TOTAL 8.8 mg/dL (8.8-10.5); CARBON DIOXIDE 30 mmol/L (22-29); CHLORIDE 105 mmol/L (98-107); CHOL/HDL RATIO 3.7 (4.2-7.3); CHOLESTEROL 149 mg/dL (131-200); CREATININE 0.64 mg/dL (0.60-1.30); FREE T4 (FREE THYROXINE) 0.77 ng/dL (0.76-1.46); GLOMERULAR FILTR. RATE CALC > 60 mL/min (>60); GLUCOSE,RANDOM 85 mg/dL (70-110); HDL CHOLESTEROL 40 mg/dL (40-60); LDL CHOL (CALC.) 88 mg/dL (0-130); POTASSIUM 4.6 mmol/L (3.5-5.1); SODIUM SERUM 140 mmol/L (136-145); THYROID STIMULATING HORMONE 1.28 uIU/mL (0.36-3.74); TOTAL PROTEIN, SERUM 6.8 g/dL (6.4-8.2); TRIGLYCERIDES 103 mg/dL (15-150); UREA NITROGEN, BLOOD 17 mg/dL (7-18)
[2018-02-27] MEDS: PARoxetine HCL 20 MG TABLET PO SCH (10:37)
[2018-02-27] MEDS: THIAMINE HCL 100 MG TABLET PO SCH ×2 (10:37→16:43)
[2018-02-27] MEDS: NALTREXONE HCL 50 MG TABLET PO SCH (10:37)
[2018-02-27] MEDS: DOCUSATE SODIUM 100 MG CAPSULE PO SCH (10:37)
[2018-02-27] MEDS: OMEPRAZOLE 20 MG CAPSULE PO SCH (10:37)
[2018-02-27] MEDS: MULTIVITAMINS WITH MINERALS, THERAPEUTIC TABLET PO SCH (10:37)
[2018-02-27] MEDS: MUPIROCIN CALCIUM 2% 22 GM OINTMENT NASAL SCH ×2 (10:38→16:44)
[2018-02-27] MEDS: FOLIC ACID 1 MG TABLET PO SCH (10:38)
[2018-02-27] MEDS ORDERED: PARO-37 PO (15:35)
[2018-02-27] MEDS ORDERED: DIVA500T52 PO (15:35)
[2018-02-27] MEDS ORDERED: OLAN10TA20 PO (15:35)
[2018-02-27] MEDS ORDERED: NALT50TA PO (15:35)
[2018-02-27 18:14] VITALS: BP 104/59
[2018-02-27] MEDS: DIVALPROEX SODIUM 500 MG ER TABLET PO SCH (20:29)
[2018-02-27] MEDS: OLANZapine 10 MG TABLET PO SCH (20:29)
[2018-02-28 01:19] VITALS: BP 139/80
[2018-02-28] MEDS ORDERED: DSS100 PO (08:38)
[2018-02-28 08:48] VITALS: BP 107/66
[2018-02-28] MEDS ORDERED: PARO10TA89 PO (08:48)
[2018-02-28] MEDS ORDERED: DIVA500T52 PO (08:49)
[2018-02-28] MEDS ORDERED: OMEP20 PO (08:49)
[2018-02-28] MEDS ORDERED: PARoxetine HCL 20 MG TABLET PO SCH (09:00)
[2018-02-28] MEDS: FOLIC ACID 1 MG TABLET PO SCH (09:33)
[2018-02-28] MEDS: MULTIVITAMINS WITH MINERALS, THERAPEUTIC TABLET PO SCH (09:34)
[2018-02-28] MEDS: THIAMINE HCL 100 MG TABLET PO SCH (09:34)
[2018-02-28] MEDS: NALTREXONE HCL 50 MG TABLET PO SCH (09:34)
[2018-02-28] MEDS: OMEPRAZOLE 20 MG CAPSULE PO SCH (09:34)
[2018-02-28] MEDS: DOCUSATE SODIUM 100 MG CAPSULE PO SCH (09:49)
[2018-02-28] MEDS: MUPIROCIN CALCIUM 2% 22 GM OINTMENT NASAL SCH (09:50)
== END 2018-02-28 13:30 | disposition home or self-care (01) | DRG 750 ==
LOC: B2S 19:25
PROVIDERS: ADMIT Psychiatry & Neurology Psychiatry; ATTEND Psychiatry & Neurology Psychiatry
DX: F25.0 Schizoaffective disorder, bipolar type (principal); R45.851 Suicidal ideations; E44.1 Mild protein-calorie malnutrition; D50.9 Iron deficiency anemia, unspecified; F17.200 Nicotine dependence, unspecified, uncomplicated; J44.9 Chronic obstructive pulmonary disease, unspecified; F12.90 Cannabis use, unspecified, uncomplicated; F14.90 Cocaine use, unspecified, uncomplicated; F15.90 Other stimulant use, unspecified, uncomplicated; G47.00 Insomnia, unspecified; K21.9 Gastro-esophageal reflux disease without esophagitis; B95.62 Methicillin resistant Staphylococcus aureus infection as the cause of diseases classified elsewhere; K59.00 Constipation, unspecified; Z59.0 Homelessness; Z68.1 Body mass index [BMI] 19.9 or less, adult; Z82.5 Family history of asthma and other chronic lower respiratory diseases; Z91.14 Patient's other noncompliance with medication regimen; Z91.19 Patient's noncompliance with other medical treatment and regimen
CPT/HCPCS: 80201; 83036; 84439; 84443; 87081

== ENCOUNTER 2018-06-23 19:27 | Inpatient (IN) | payer MEDICAID ==
[~2018-06-23] VITALS: Ht 175.3 cm; Wt 71.0 kg
[~2018-06-23 19:27] MED LIST changes: +DIVA-78 PO; -DIVA250T45 PO; +DIVA500T52 PO; +DSS100 PO; +OLAN10TA20 PO; -OLAN10TA3 PO; +PARO-37 PO; -PARO20TA24 PO
[2018-06-23 19:58] VITALS: BP 122/72
[2018-06-23] MEDS ORDERED: ZOLPIDEM TARTRATE 10 MG TABLET PO PRN (20:30)
[2018-06-23] MEDS ORDERED: LORazepam 2 MG TABLET PO PRN (20:30)
[2018-06-23] MEDS ORDERED: OLANZapine 5 MG RAPDIS TABLET PO PRN (20:30)
[2018-06-23] MEDS: OLANZapine 7.5 MG TABLET PO SCH (21:00)
[2018-06-23] MEDS: DIVALPROEX SODIUM 500 MG ER TABLET PO SCH (21:00)
[2018-06-23 21:16] VITALS: BP 118/75
[2018-06-23] MEDS ORDERED: PNEUMOCOCCAL VACCINE POLYVALENT 0.5 ML VIAL [PPSV23] IM ONE (21:30)
[2018-06-24 05:56] VITALS: BP 114/76
[2018-06-24] MEDS: NALTREXONE HCL 50 MG TABLET PO SCH (09:03)
[2018-06-24] MEDS: PARoxetine HCL 20 MG TABLET PO SCH (09:03)
[2018-06-24 09:14] VITALS: BP 105/67
[2018-06-24] MEDS ORDERED: PERMETHRIN 5% 60 GM CREAM TP ONE (10:45)
[2018-06-24] MEDS ORDERED: HydrOXYzine PAMOATE 50 MG CAPSULE PO PRN (12:30)
[2018-06-24] MEDS ORDERED: MAGNESIUM HYDROXIDE SUSPENSION 30 ML UDCUP PO PRN (12:30)
[2018-06-24] MEDS ORDERED: TUBERCULIN, PURIFIED PROTEIN DERIVATIVE 5 TU/0.1 ML SYG ID ONE (12:30)
[2018-06-24] MEDS ORDERED: PROMETHAZINE HCL 25 MG TABLET PO PRN (12:30)
[2018-06-24] MEDS ORDERED: GuaiFENesin/D-METHORPHAN [SUGAR-FREE] 200-20MG/10 ML SYRUP UDCUP PO PRN (12:30)
[2018-06-24] MEDS ORDERED: MAG HYDROX/AL HYDROX/SIMETH ES 30 ML SUSPENSION UDCUP PO PRN (12:30)
[2018-06-24] MEDS ORDERED: LOPERAMIDE HCL 2 MG CAPSULE PO PRN (12:30)
[2018-06-24] MEDS ORDERED: ACETAMINOPHEN 325 MG TABLET PO PRN (12:30)
[2018-06-24 16:00] VITALS: BP 114/71
[2018-06-24] MEDS: THIAMINE HCL 100 MG TABLET PO SCH (16:39)
[2018-06-24] MEDS: DIVALPROEX SODIUM 500 MG ER TABLET PO SCH (20:48)
[2018-06-24] MEDS: OLANZapine 7.5 MG TABLET PO SCH (20:48)
[2018-06-25 06:03] VITALS: BP 109/72
[2018-06-25 08:23] LABS: BASOPHILS % (AUTO) 0.6 % (0.0-2.0); EOSINOPHILS % (AUTO) 4.2 % (1.0-6.0); HEMATOCRIT 38.8 % (41-53); HEMOGLOBIN 13.1 g/dL (13.5-17.5); LYMPHOCYTES # (AUTO) 1.4 K/uL (1.0-4.8); LYMPHOCYTES % (AUTO) 34.1 % (22.0-44.0); MEAN CORPUSCULAR HEMOGLOBIN 32.2 pg (26.0-34.0); MEAN CORPUSCULAR HGB CONC 33.8 G/dL (31.0-37.0); MEAN CORPUSCULAR VOLUME 95 fL (80-100); MONOCYTES # (AUTO) 0.4 K/uL (0.1-1.0); MONOCYTES % (AUTO) 11.1 % (2.0-9.0); PLATELET COUNT (AUTO) 239 K/uL (150-450); RED BLOOD CELL COUNT(AUTO) 4.07 MIL/uL (4.50-5.90)
[2018-06-25 08:30] LABS: HEMOGLOBIN A1C 5.5 % (4.5-6.2)
[2018-06-25 08:55] LABS: ALANINE AMINOTRANSFERASE 37 U/L (12-78); ALBUMIN 3.2 g/dL (3.4-5.0); ALKALINE PHOSPHATASE 78 U/L (46-116); ANION GAP 6 mmol/L (8-16); ASPARTATE AMINOTRANSFERASE 29 U/L (15-37); BILIRUBIN,TOTAL 0.2 mg/dL (0.1-1.0); CALCIUM, TOTAL 8.6 mg/dL (8.8-10.5); CARBON DIOXIDE 31 mmol/L (22-29); CHLORIDE 106 mmol/L (98-107); CHOL/HDL RATIO 3.1 (4.2-7.3); CHOLESTEROL 121 mg/dL (131-200); FREE T4 (FREE THYROXINE) 1.05 ng/dL (0.76-1.46); GLOMERULAR FILTR. RATE CALC > 60 mL/min (>60); GLUCOSE,RANDOM 91 mg/dL (70-110); HDL CHOLESTEROL 39 mg/dL (40-60); LDL CHOL (CALC.) 60 mg/dL (0-130); POTASSIUM 3.7 mmol/L (3.5-5.1); SODIUM SERUM 143 mmol/L (136-145); THYROID STIMULATING HORMONE 1.25 uIU/mL (0.36-3.74); TOTAL PROTEIN, SERUM 6.5 g/dL (6.4-8.2); TRIGLYCERIDES 112 mg/dL (15-150); UREA NITROGEN, BLOOD 17 mg/dL (7-18)
[2018-06-25] MEDS: FOLIC ACID 1 MG TABLET PO SCH (08:58)
[2018-06-25] MEDS: THIAMINE HCL 100 MG TABLET PO SCH ×2 (08:58→16:48)
[2018-06-25] MEDS: PARoxetine HCL 20 MG TABLET PO SCH (08:58)
[2018-06-25] MEDS: MULTIVITAMINS WITH MINERALS, THERAPEUTIC TABLET PO SCH (08:58)
[2018-06-25] MEDS: NALTREXONE HCL 50 MG TABLET PO SCH (08:58)
[2018-06-25 16:43] VITALS: BP 130/80
[2018-06-25] MEDS: OLANZapine 10 MG TABLET PO SCH (21:08)
[2018-06-25] MEDS: DIVALPROEX SODIUM 500 MG ER TABLET PO SCH (21:09)
[2018-06-26 07:04] VITALS: BP 128/84
[2018-06-26 08:36] VITALS: BP 136/81
[2018-06-26] MEDS: PARoxetine HCL 20 MG TABLET PO SCH (09:50)
[2018-06-26] MEDS: FOLIC ACID 1 MG TABLET PO SCH (09:50)
[2018-06-26] MEDS: MULTIVITAMINS WITH MINERALS, THERAPEUTIC TABLET PO SCH (09:50)
[2018-06-26] MEDS: NALTREXONE HCL 50 MG TABLET PO SCH (09:51)
[2018-06-26] MEDS: THIAMINE HCL 100 MG TABLET PO SCH ×2 (09:51→16:31)
[2018-06-26 16:41] VITALS: BP 127/79
[2018-06-26] MEDS: DIVALPROEX SODIUM 500 MG ER TABLET PO SCH (20:38)
[2018-06-26] MEDS: OLANZapine 10 MG TABLET PO SCH (20:39)
[2018-06-27 01:06] VITALS: BP 130/82
[2018-06-27] MEDS: THIAMINE HCL 100 MG TABLET PO SCH ×2 (08:50→16:19)
[2018-06-27] MEDS: MULTIVITAMINS WITH MINERALS, THERAPEUTIC TABLET PO SCH (08:50)
[2018-06-27] MEDS: NALTREXONE HCL 50 MG TABLET PO SCH (08:50)
[2018-06-27] MEDS: FOLIC ACID 1 MG TABLET PO SCH (08:50)
[2018-06-27] MEDS: PARoxetine HCL 20 MG TABLET PO SCH (08:50)
[2018-06-27 08:53] VITALS: BP 136/83
[2018-06-27 16:24] VITALS: BP 134/82
[2018-06-27] MEDS: DIVALPROEX SODIUM 500 MG ER TABLET PO SCH (20:41)
[2018-06-27] MEDS: OLANZapine 10 MG TABLET PO SCH (20:41)
[2018-06-28 06:40] VITALS: BP 136/82
[2018-06-28] MEDS: MULTIVITAMINS WITH MINERALS, THERAPEUTIC TABLET PO SCH (09:05)
[2018-06-28] MEDS: THIAMINE HCL 100 MG TABLET PO SCH ×2 (09:05→16:57)
[2018-06-28] MEDS: FOLIC ACID 1 MG TABLET PO SCH (09:05)
[2018-06-28] MEDS: NALTREXONE HCL 50 MG TABLET PO SCH (09:05)
[2018-06-28] MEDS: PARoxetine HCL 20 MG TABLET PO SCH (09:37)
[2018-06-28 09:41] VITALS: BP 119/71
[2018-06-28 16:43] VITALS: BP 115/81
[2018-06-28] MEDS: DIVALPROEX SODIUM 500 MG ER TABLET PO SCH (20:13)
[2018-06-28] MEDS: OLANZapine 10 MG TABLET PO SCH (20:13)
[2018-06-29 07:16] VITALS: BP 116/82
[2018-06-29] MEDS: PARoxetine HCL 20 MG TABLET PO SCH (08:25)
[2018-06-29] MEDS: MULTIVITAMINS WITH MINERALS, THERAPEUTIC TABLET PO SCH (08:25)
[2018-06-29] MEDS: FOLIC ACID 1 MG TABLET PO SCH (08:25)
[2018-06-29] MEDS: NALTREXONE HCL 50 MG TABLET PO SCH (08:25)
[2018-06-29] MEDS: THIAMINE HCL 100 MG TABLET PO SCH ×2 (08:25→17:01)
[2018-06-29 08:45] VITALS: BP 120/68
[2018-06-29 16:24] VITALS: BP 121/67
[2018-06-29] MEDS: OLANZapine 10 MG TABLET PO SCH (20:04)
[2018-06-29] MEDS: DIVALPROEX SODIUM 500 MG ER TABLET PO SCH (20:04)
[2018-06-30 07:23] VITALS: BP 118/78
[2018-06-30 09:15] VITALS: BP 115/71
[2018-06-30] MEDS: MULTIVITAMINS WITH MINERALS, THERAPEUTIC TABLET PO SCH (09:29)
[2018-06-30] MEDS: THIAMINE HCL 100 MG TABLET PO SCH (09:29)
[2018-06-30] MEDS: NALTREXONE HCL 50 MG TABLET PO SCH (09:29)
[2018-06-30] MEDS: FOLIC ACID 1 MG TABLET PO SCH (09:29)
[2018-06-30] MEDS: PARoxetine HCL 20 MG TABLET PO SCH (09:29)
[2018-06-30] MEDS ORDERED: NALT50TA PO (14:22)
[2018-06-30] MEDS ORDERED: PARO-37 PO (14:22)
[2018-06-30] MEDS ORDERED: DIVA500T52 PO (14:22)
[2018-06-30] MEDS ORDERED: OLAN10TA20 PO (14:22)
[2018-06-30 16:00] VITALS: BP 116/78
== END 2018-06-30 17:10 | disposition home or self-care (01) | DRG 750 ==
LOC: B2S 20:30 → EDSTATUS 20:36
PROVIDERS: ADMIT Psychiatry & Neurology Psychiatry; ATTEND Psychiatry & Neurology Psychiatry
DX: F25.0 Schizoaffective disorder, bipolar type (principal); E44.1 Mild protein-calorie malnutrition; G25.71 Drug induced akathisia; A63.0 Anogenital (venereal) warts; B86 Scabies; D64.9 Anemia, unspecified; F15.90 Other stimulant use, unspecified, uncomplicated; F17.210 Nicotine dependence, cigarettes, uncomplicated; M10.9 Gout, unspecified; G89.4 Chronic pain syndrome; K21.9 Gastro-esophageal reflux disease without esophagitis; K40.90 Unilateral inguinal hernia, without obstruction or gangrene, not specified as recurrent; Z91.19 Patient's noncompliance with other medical treatment and regimen; Z59.0 Homelessness; Z88.8 Allergy status to other drugs, medicaments and biological substances; Z68.23 Body mass index [BMI] 23.0-23.9, adult
CPT/HCPCS: 83036; 84439; 84443

== ENCOUNTER 2018-10-05 19:51 | Inpatient (IN) | payer MEDICAID ==
[~2018-10-05] VITALS: Ht 175.3 cm; Wt 61.7 kg
[~2018-10-05 19:51] MED LIST changes: -DIVA500T52 PO; -DSS100 PO
[2018-10-05] MEDS ORDERED: ZOLPIDEM TARTRATE 10 MG TABLET PO PRN (21:00)
[2018-10-05] MEDS ORDERED: OLANZapine 5 MG RAPDIS TABLET PO PRN (21:00)
[2018-10-05] MEDS ORDERED: LORazepam 2 MG TABLET PO PRN (21:00)
[2018-10-05 21:25] VITALS: BP 123/83
[2018-10-05 21:29] VITALS: BP 119/74
[2018-10-05] MEDS ORDERED: ACETAMINOPHEN 325 MG TABLET PO PRN (21:45)
[2018-10-05] MEDS ORDERED: PETROLATUM,WHITE 28 GM JELLY TP PRN (21:45)
[2018-10-05] MEDS ORDERED: GuaiFENesin/D-METHORPHAN [SUGAR-FREE] 200-20MG/10 ML SYRUP UDCUP PO PRN (21:45)
[2018-10-05] MEDS ORDERED: ONDANSETRON HCL 4 MG TABLET PO PRN (21:45)
[2018-10-05] MEDS ORDERED: CloNIDine HCL 0.1 MG TABLET PO PRN (21:45)
[2018-10-05] MEDS ORDERED: ALBUTEROL SULFATE HFA 90 MCG/PUFF 8 GM INHALER IH PRN (21:45)
[2018-10-05] MEDS ORDERED: LOPERAMIDE HCL 2 MG CAPSULE PO PRN (21:45)
[2018-10-05] MEDS ORDERED: MAGNESIUM HYDROXIDE SUSPENSION 30 ML UDCUP PO PRN (21:45)
[2018-10-05] MEDS ORDERED: NICOTINE 14 MG/24 HOUR PATCH TD PRN (21:45)
[2018-10-05] MEDS ORDERED: MAG HYDROX/AL HYDROX/SIMETH ES 30 ML SUSPENSION UDCUP PO PRN (21:45)
[2018-10-05] MEDS ORDERED: IBUPROFEN 400 MG TABLET PO PRN (21:45)
[2018-10-05] MEDS ORDERED: DOCUSATE SODIUM 100 MG CAPSULE PO PRN (21:45)
[2018-10-05] MEDS ORDERED: PNEUMOCOCCAL VACCINE POLYVALENT 0.5 ML VIAL [PPSV23] IM ONE (22:00)
[2018-10-06 08:19] VITALS: BP 106/69
[2018-10-06 08:30] VITALS: BP 106/69
[2018-10-06 12:00] VITALS: BP 110/68
[2018-10-06] MEDS: PARoxetine HCL 20 MG TABLET PO SCH (12:41)
[2018-10-06 16:00] VITALS: BP 128/83
[2018-10-06 20:00] VITALS: BP 113/64
[2018-10-06] MEDS: DIVALPROEX SODIUM 500 MG DR TABLET PO SCH (20:39)
[2018-10-06] MEDS: OLANZapine 10 MG TABLET PO SCH (20:40)
[2018-10-07 01:09] VITALS: BP 120/78
[2018-10-07 01:31] VITALS: BP 129/89
[2018-10-07] MEDS: PARoxetine HCL 20 MG TABLET PO SCH (09:12)
[2018-10-07 16:23] VITALS: BP 109/65
[2018-10-07] MEDS: OLANZapine 10 MG TABLET PO SCH (20:26)
[2018-10-07] MEDS: DIVALPROEX SODIUM 500 MG DR TABLET PO SCH (20:26)
[2018-10-08 06:41] VITALS: BP 106/62
[2018-10-08 08:22] LABS: BASOPHILS % (AUTO) 0.2 % (0.0-2.0); HEMOGLOBIN 14.3 g/dL (13.5-17.5); LYMPHOCYTES # (AUTO) 0.5 K/uL (1.0-4.8); LYMPHOCYTES % (AUTO) 8.6 % (22.0-44.0); MEAN CORPUSCULAR HEMOGLOBIN 30.6 pg (26.0-34.0); MEAN CORPUSCULAR HGB CONC 33.3 G/dL (31.0-37.0); MEAN CORPUSCULAR VOLUME 92 fL (80-100); MONOCYTES # (AUTO) 0.3 K/uL (0.1-1.0); MONOCYTES % (AUTO) 4.2 % (2.0-9.0); NEUTROPHILS # (AUTO) 5.2 K/uL (1.8-7.7); PLATELET COUNT (AUTO) 274 K/uL (150-450); RED BLOOD CELL COUNT(AUTO) 4.69 MIL/uL (4.50-5.90); RED CELL DISTRIBUTION WIDTH 14.6 % (11.5-14.5)
[2018-10-08 08:29] VITALS: BP 121/71
[2018-10-08 08:38] LABS: HEMOGLOBIN A1C 6.1 % (4.5-6.2)
[2018-10-08 08:55] LABS: ALANINE AMINOTRANSFERASE 17 U/L (12-78); ALBUMIN 3.4 g/dL (3.4-5.0); ALKALINE PHOSPHATASE 92 U/L (46-116); ANION GAP 10 mmol/L (8-16); ASPARTATE AMINOTRANSFERASE 12 U/L (15-37); BILIRUBIN,TOTAL 0.4 mg/dL (0.1-1.0); CALCIUM, TOTAL 9.2 mg/dL (8.8-10.5); CARBON DIOXIDE 26 mmol/L (22-29); CHLORIDE 105 mmol/L (98-107); CHOL/HDL RATIO 3.3 (4.2-7.3); CHOLESTEROL 142 mg/dL (131-200); CREATININE 0.55 mg/dL (0.60-1.30); FREE T4 (FREE THYROXINE) 0.98 ng/dL (0.76-1.46); GLOMERULAR FILTR. RATE CALC > 60 mL/min (>60); GLUCOSE,RANDOM 97 mg/dL (70-110); HDL CHOLESTEROL 43 mg/dL (40-60); LDL CHOL (CALC.) 80 mg/dL (0-130); POTASSIUM 4.4 mmol/L (3.5-5.1); SODIUM SERUM 141 mmol/L (136-145); THYROID STIMULATING HORMONE 0.33 uIU/mL (0.36-3.74); TOTAL PROTEIN, SERUM 6.7 g/dL (6.4-8.2); TRIGLYCERIDES 93 mg/dL (15-150); UREA NITROGEN, BLOOD 17 mg/dL (7-18)
[2018-10-08] MEDS: PARoxetine HCL 20 MG TABLET PO SCH (09:55)
[2018-10-08 16:47] VITALS: BP 120/75
[2018-10-08] MEDS: DIVALPROEX SODIUM 500 MG DR TABLET PO SCH (20:35)
[2018-10-08] MEDS: OLANZapine 10 MG TABLET PO SCH (20:39)
[2018-10-09] MEDS: PARoxetine HCL 20 MG TABLET PO SCH (09:26)
[2018-10-09 16:55] VITALS: BP 109/79
[2018-10-09] MEDS: OLANZapine 10 MG TABLET PO SCH (20:17)
[2018-10-09] MEDS: DIVALPROEX SODIUM 500 MG DR TABLET PO SCH (20:17)
[2018-10-10 00:26] VITALS: BP 124/80
[2018-10-10 08:27] VITALS: BP 119/66
[2018-10-10] MEDS: PARoxetine HCL 20 MG TABLET PO SCH (08:30)
[2018-10-10 16:43] VITALS: BP 126/82
== END 2018-10-10 17:35 | disposition home or self-care (01) | DRG 750 ==
LOC: B2S 20:25 → EDSTATUS 20:53
PROVIDERS: ADMIT Psychiatry & Neurology Psychiatry; ATTEND Psychiatry & Neurology Psychiatry
DX: F25.1 Schizoaffective disorder, depressive type (principal); Z59.0 Homelessness; F10.10 Alcohol abuse, uncomplicated; I10 Essential (primary) hypertension; J44.9 Chronic obstructive pulmonary disease, unspecified; K21.9 Gastro-esophageal reflux disease without esophagitis; F41.9 Anxiety disorder, unspecified; R45.87 Impulsiveness; Z79.899 Other long term (current) drug therapy
CPT/HCPCS: 83036; 84439; 84443

== ENCOUNTER 2018-11-27 16:45 | Inpatient (IN) | payer MEDICAID ==
[~2018-11-27] VITALS: Ht 175.3 cm; Wt 56.8 kg
[~2018-11-27 16:45] MED LIST changes: -NALT50TA PO
[2018-11-27 17:41] VITALS: BP 138/54
[2018-11-27 18:01] VITALS: BP 108/70
[2018-11-27] MEDS ORDERED: ONDANSETRON HCL 4 MG TABLET PO PRN (18:15)
[2018-11-27] MEDS ORDERED: ALBUTEROL SULFATE HFA 90 MCG/PUFF 8 GM INHALER IH PRN (18:15)
[2018-11-27] MEDS ORDERED: LOPERAMIDE HCL 2 MG CAPSULE PO PRN (18:15)
[2018-11-27] MEDS ORDERED: PNEUMOCOCCAL VACCINE POLYVALENT 0.5 ML VIAL [PPSV23] IM ONE (18:15)
[2018-11-27] MEDS ORDERED: NICOTINE 14 MG/24 HOUR PATCH TD PRN (18:15)
[2018-11-27] MEDS ORDERED: CloNIDine HCL 0.1 MG TABLET PO PRN (18:15)
[2018-11-27] MEDS ORDERED: IBUPROFEN 400 MG TABLET PO PRN (18:15)
[2018-11-27] MEDS ORDERED: PETROLATUM,WHITE 28 GM JELLY TP PRN (18:15)
[2018-11-27] MEDS ORDERED: MAG HYDROX/AL HYDROX/SIMETH ES 30 ML SUSPENSION UDCUP PO PRN (18:15)
[2018-11-27] MEDS ORDERED: ACETAMINOPHEN 325 MG TABLET PO PRN (18:15)
[2018-11-27] MEDS ORDERED: OLANZapine 5 MG TABLET PO PRN (18:15)
[2018-11-27] MEDS ORDERED: GuaiFENesin/D-METHORPHAN [SUGAR-FREE] 200-20MG/10 ML SYRUP UDCUP PO PRN (18:15)
[2018-11-27] MEDS ORDERED: DOCUSATE SODIUM 100 MG CAPSULE PO PRN (18:15)
[2018-11-27] MEDS ORDERED: MAGNESIUM HYDROXIDE SUSPENSION 30 ML UDCUP PO PRN (18:15)
[2018-11-27] MEDS: LORazepam 2 MG TABLET PO PRN (18:18)
[2018-11-28 17:25] VITALS: BP 118/68
[2018-11-28] MEDS: DIVALPROEX SODIUM 500 MG DR TABLET PO SCH (21:00)
[2018-11-28] MEDS: OLANZapine 10 MG TABLET PO SCH (21:00)
[2018-11-29 07:13] LABS: BASOPHILS % (AUTO) 0.8 % (0.0-2.0); EOSINOPHILS % (AUTO) 4.5 % (1.0-6.0); HEMOGLOBIN 13.6 g/dL (13.5-17.5); LYMPHOCYTES # (AUTO) 1.4 K/uL (1.0-4.8); LYMPHOCYTES % (AUTO) 25.6 % (22.0-44.0); MEAN CORPUSCULAR HEMOGLOBIN 30.5 pg (26.0-34.0); MEAN CORPUSCULAR HGB CONC 32.3 G/dL (31.0-37.0); MEAN CORPUSCULAR VOLUME 94 fL (80-100); MONOCYTES # (AUTO) 0.5 K/uL (0.1-1.0); MONOCYTES % (AUTO) 8.9 % (2.0-9.0); NEUTROPHILS # (AUTO) 3.3 K/uL (1.8-7.7); NEUTROPHILS % (AUTO) 60.2 % (40.0-70.0); PLATELET COUNT (AUTO) 244 K/uL (150-450); RED BLOOD CELL COUNT(AUTO) 4.45 MIL/uL (4.50-5.90)
[2018-11-29 07:24] LABS: ANION GAP 9 mmol/L (8-16); CALCIUM, TOTAL 9.5 mg/dL (8.8-10.5); CARBON DIOXIDE 29 mmol/L (22-29); CHLORIDE 103 mmol/L (98-107); CREATININE 0.96 mg/dL (0.60-1.30); GLOMERULAR FILTR. RATE CALC > 60 mL/min (>60); GLUCOSE,RANDOM 56 mg/dL (70-110); POTASSIUM 3.8 mmol/L (3.5-5.1); SODIUM SERUM 141 mmol/L (136-145); UREA NITROGEN, BLOOD 33 mg/dL (7-18)
[2018-11-29] MEDS: PARoxetine HCL 20 MG TABLET PO SCH (09:46)
[2018-11-29 16:22] VITALS: BP 133/60
[2018-11-29] MEDS: DIVALPROEX SODIUM 500 MG DR TABLET PO SCH (21:09)
[2018-11-29] MEDS: OLANZapine 10 MG TABLET PO SCH (21:09)
[2018-11-30] MEDS: PARoxetine HCL 20 MG TABLET PO SCH (08:27)
[2018-11-30 08:53] VITALS: BP 100/62
[2018-11-30 16:53] VITALS: BP 131/95
[2018-11-30] MEDS: DIVALPROEX SODIUM 500 MG DR TABLET PO SCH (20:34)
[2018-11-30] MEDS: OLANZapine 10 MG TABLET PO SCH (20:34)
[2018-12-01 07:50] LABS: ANION GAP 3 mmol/L (8-16); CALCIUM, TOTAL 8.8 mg/dL (8.8-10.5); CARBON DIOXIDE 32 mmol/L (22-29); CHLORIDE 109 mmol/L (98-107); CREATININE 0.67 mg/dL (0.60-1.30); GLOMERULAR FILTR. RATE CALC > 60 mL/min (>60); GLUCOSE,RANDOM 92 mg/dL (70-110); SODIUM SERUM 144 mmol/L (136-145); UREA NITROGEN, BLOOD 23 mg/dL (7-18)
[2018-12-01 08:20] VITALS: BP 104/69
[2018-12-01] MEDS: PARoxetine HCL 20 MG TABLET PO SCH (09:34)
[2018-12-01 10:09] LABS: GLUCOMETER DEV NAME(LOC) BV3N.; GLUCOSE,POINT OF CARE 126 MG/DL (70-110)
[2018-12-01 16:00] VITALS: BP 128/82
[2018-12-01 17:29] LABS: GLUCOMETER DEV NAME(LOC) BV3N.; GLUCOSE,POINT OF CARE 111 MG/DL (70-110)
[2018-12-01] MEDS: ZOLPIDEM TARTRATE 10 MG TABLET PO PRN (20:53)
[2018-12-01] MEDS: OLANZapine 10 MG TABLET PO SCH (20:53)
[2018-12-01] MEDS: DIVALPROEX SODIUM 500 MG DR TABLET PO SCH (20:53)
[2018-12-02 06:34] VITALS: BP 138/75
[2018-12-02 08:18] VITALS: BP 141/88
[2018-12-02] MEDS: PARoxetine HCL 20 MG TABLET PO SCH (09:02)
[2018-12-02 15:04] LABS: GLUCOMETER DEV NAME(LOC) BV3N.; GLUCOSE,POINT OF CARE 117 MG/DL (70-110)
[2018-12-02 16:00] VITALS: BP 139/85
[2018-12-02] MEDS: OLANZapine 10 MG TABLET PO SCH (20:33)
[2018-12-02] MEDS: ZOLPIDEM TARTRATE 10 MG TABLET PO PRN (20:34)
[2018-12-02] MEDS: DIVALPROEX SODIUM 500 MG DR TABLET PO SCH (20:34)
[2018-12-03 06:22] VITALS: BP 134/73
[2018-12-03 08:03] VITALS: BP 127/76
[2018-12-03] MEDS: PARoxetine HCL 20 MG TABLET PO SCH (08:41)
[2018-12-03 16:15] VITALS: BP 119/80
[2018-12-03] MEDS: OLANZapine 10 MG TABLET PO SCH (20:38)
[2018-12-03] MEDS: DIVALPROEX SODIUM 500 MG DR TABLET PO SCH (20:38)
[2018-12-03] MEDS: ZOLPIDEM TARTRATE 10 MG TABLET PO PRN (20:39)
[2018-12-03] MEDS: LORazepam 2 MG TABLET PO PRN (20:39)
[2018-12-04 06:20] VITALS: BP 137/93
[2018-12-04] MEDS: PARoxetine HCL 20 MG TABLET PO SCH (08:38)
[2018-12-04 08:39] VITALS: BP 135/70
[2018-12-04 16:00] VITALS: BP 129/74
[2018-12-04] MEDS: LORazepam 2 MG TABLET PO PRN ×2 (16:27→20:33)
[2018-12-04] MEDS: OLANZapine 10 MG TABLET PO SCH (20:32)
[2018-12-04] MEDS: DIVALPROEX SODIUM 500 MG DR TABLET PO SCH (20:32)
[2018-12-04] MEDS: ZOLPIDEM TARTRATE 10 MG TABLET PO PRN (20:33)
[2018-12-05 05:54] VITALS: BP 134/83
[2018-12-05] MEDS: PARoxetine HCL 20 MG TABLET PO SCH (08:16)
[2018-12-05 08:23] VITALS: BP 131/84
[2018-12-05] MEDS: LORazepam 2 MG TABLET PO PRN ×3 (10:20→20:31)
[2018-12-05 16:09] VITALS: BP 105/66
[2018-12-05] MEDS: DIVALPROEX SODIUM 500 MG DR TABLET PO SCH (20:31)
[2018-12-05] MEDS: OLANZapine 10 MG TABLET PO SCH (20:31)
[2018-12-05] MEDS: ZOLPIDEM TARTRATE 10 MG TABLET PO PRN (20:32)
[2018-12-06 06:07] VITALS: BP 118/72
[2018-12-06 08:49] VITALS: BP 121/73
[2018-12-06] MEDS: PARoxetine HCL 20 MG TABLET PO SCH (08:54)
[2018-12-06] MEDS ORDERED: LACTULOSE 20 GM/30 ML SOLUTION UDCUP PO SCH (09:45)
== END 2018-12-06 16:35 | disposition home or self-care (01) | DRG 750 ==
LOC: B3A 17:10
PROVIDERS: ADMIT Psychiatry & Neurology Psychiatry; ATTEND Psychiatry & Neurology Psychiatry
DX: F25.0 Schizoaffective disorder, bipolar type (principal); F19.10 Other psychoactive substance abuse, uncomplicated; F32.9 Major depressive disorder, single episode, unspecified; F41.9 Anxiety disorder, unspecified; I10 Essential (primary) hypertension; J44.9 Chronic obstructive pulmonary disease, unspecified; K21.9 Gastro-esophageal reflux disease without esophagitis; K59.00 Constipation, unspecified; Z88.8 Allergy status to other drugs, medicaments and biological substances
CPT/HCPCS: 90732

== ENCOUNTER 2019-01-16 19:53 | Inpatient (IN) | payer MEDICAID ==
[~2019-01-16] VITALS: Ht 180.3 cm; Wt 55.8 kg
[2019-01-16] MEDS ORDERED: ZOLPIDEM TARTRATE 10 MG TABLET PO PRN (20:00)
[2019-01-16] MEDS ORDERED: OLANZapine 5 MG RAPDIS TABLET PO PRN (20:00)
[2019-01-16] MEDS ORDERED: LORazepam 2 MG TABLET PO PRN (20:00)
[2019-01-16 20:30] VITALS: BP 121/60
[2019-01-16] MEDS ORDERED: DOCUSATE SODIUM 100 MG CAPSULE PO PRN (21:45)
[2019-01-16] MEDS ORDERED: MAG HYDROX/AL HYDROX/SIMETH ES 30 ML SUSPENSION UDCUP PO PRN (21:45)
[2019-01-16] MEDS ORDERED: NICOTINE 14 MG/24 HOUR PATCH TD PRN (21:45)
[2019-01-16] MEDS ORDERED: LOPERAMIDE HCL 2 MG CAPSULE PO PRN (21:45)
[2019-01-16] MEDS ORDERED: ALBUTEROL SULFATE HFA 90 MCG/PUFF 8 GM INHALER IH PRN (21:45)
[2019-01-16] MEDS ORDERED: IBUPROFEN 400 MG TABLET PO PRN (21:45)
[2019-01-16] MEDS ORDERED: PETROLATUM,WHITE 28 GM JELLY TP PRN (21:45)
[2019-01-16] MEDS ORDERED: GuaiFENesin/D-METHORPHAN [SUGAR-FREE] 200-20MG/10 ML SYRUP UDCUP PO PRN (21:45)
[2019-01-16] MEDS ORDERED: ACETAMINOPHEN 325 MG TABLET PO PRN (21:45)
[2019-01-16] MEDS ORDERED: CloNIDine HCL 0.1 MG TABLET PO PRN (21:45)
[2019-01-16] MEDS ORDERED: ONDANSETRON HCL 4 MG TABLET PO PRN (21:45)
[2019-01-16] MEDS ORDERED: MAGNESIUM HYDROXIDE SUSPENSION 30 ML UDCUP PO PRN (21:45)
[2019-01-16] MEDS ORDERED: PNEUMOCOCCAL VACCINE POLYVALENT 0.5 ML VIAL [PPSV23] IM ONE (23:15)
[2019-01-17 06:26] VITALS: BP 138/88
[2019-01-17 07:30] LABS: BASOPHILS % (AUTO) 1.4 % (0.0-2.0); EOSINOPHILS % (AUTO) 5.3 % (1.0-6.0); HEMATOCRIT 38.9 % (41-53); HEMOGLOBIN 12.6 g/dL (13.5-17.5); LYMPHOCYTES # (AUTO) 1.6 K/uL (1.0-4.8); LYMPHOCYTES % (AUTO) 42.5 % (22.0-44.0); MEAN CORPUSCULAR HEMOGLOBIN 29.7 pg (26.0-34.0); MEAN CORPUSCULAR HGB CONC 32.5 G/dL (31.0-37.0); MEAN CORPUSCULAR VOLUME 91 fL (80-100); MONOCYTES # (AUTO) 0.3 K/uL (0.1-1.0); MONOCYTES % (AUTO) 9.4 % (2.0-9.0); NEUTROPHILS # (AUTO) 1.5 K/uL (1.8-7.7); NEUTROPHILS % (AUTO) 41.4 % (40.0-70.0); PLATELET COUNT (AUTO) 168 K/uL (150-450); RED BLOOD CELL COUNT(AUTO) 4.26 MIL/uL (4.50-5.90)
[2019-01-17 08:04] LABS: ALANINE AMINOTRANSFERASE 19 U/L (12-78); ALBUMIN 2.9 g/dL (3.4-5.0); ALKALINE PHOSPHATASE 87 U/L (46-116); ANION GAP 3 mmol/L (8-16); ASPARTATE AMINOTRANSFERASE 13 U/L (15-37); BILIRUBIN,TOTAL 0.1 mg/dL (0.1-1.0); CALCIUM, TOTAL 8.9 mg/dL (8.8-10.5); CARBON DIOXIDE 30 mmol/L (22-29); CHLORIDE 105 mmol/L (98-107); CHOLESTEROL 137 mg/dL (131-200); CREATININE 0.77 mg/dL (0.60-1.30); GLOMERULAR FILTR. RATE CALC > 60 mL/min (>60); GLUCOSE,RANDOM 91 mg/dL (70-110); HDL CHOLESTEROL 45 mg/dL (40-60); LDL CHOL (CALC.) 79 mg/dL (0-130); POTASSIUM 4.1 mmol/L (3.5-5.1); SODIUM SERUM 138 mmol/L (136-145); THYROID STIMULATING HORMONE 3.08 uIU/mL (0.36-3.74); TRIGLYCERIDES 67 mg/dL (15-150); UREA NITROGEN, BLOOD 16 mg/dL (7-18)
[2019-01-17 08:23] VITALS: BP 130/78
[2019-01-17] MEDS: MULTIVITAMINS WITH MINERALS, THERAPEUTIC TABLET PO SCH (09:06)
[2019-01-17] MEDS: PARoxetine HCL 20 MG TABLET PO SCH (10:42)
[2019-01-17 16:13] VITALS: BP 119/83
[2019-01-17] MEDS: OLANZapine 10 MG TABLET PO SCH (20:11)
[2019-01-17] MEDS: DIVALPROEX SODIUM 500 MG DR TABLET PO SCH (20:13)
[2019-01-18 00:06] VITALS: BP 127/87
[2019-01-18 08:06] VITALS: BP 111/77
[2019-01-18] MEDS: PARoxetine HCL 20 MG TABLET PO SCH (08:38)
[2019-01-18] MEDS: MULTIVITAMINS WITH MINERALS, THERAPEUTIC TABLET PO SCH (08:38)
[2019-01-18 16:16] VITALS: BP 131/79
[2019-01-18] MEDS: OLANZapine 10 MG TABLET PO SCH (20:18)
[2019-01-18] MEDS: DIVALPROEX SODIUM 500 MG DR TABLET PO SCH (20:19)
[2019-01-19 05:44] VITALS: BP 126/82
[2019-01-19 08:25] VITALS: BP 133/92
[2019-01-19] MEDS: MULTIVITAMINS WITH MINERALS, THERAPEUTIC TABLET PO SCH (08:33)
[2019-01-19] MEDS: PARoxetine HCL 20 MG TABLET PO SCH (08:33)
== END 2019-01-19 13:10 | disposition home or self-care (01) | DRG 750 ==
LOC: B2S 20:25
PROVIDERS: ADMIT Psychiatry & Neurology Child & Adolescent Psychiatry; ATTEND Psychiatry & Neurology Psychiatry
DX: F25.1 Schizoaffective disorder, depressive type (principal); Z59.0 Homelessness; D64.9 Anemia, unspecified; D72.819 Decreased white blood cell count, unspecified; F25.9 Schizoaffective disorder, unspecified; I10 Essential (primary) hypertension; J44.9 Chronic obstructive pulmonary disease, unspecified; K21.9 Gastro-esophageal reflux disease without esophagitis; F15.10 Other stimulant abuse, uncomplicated; F12.10 Cannabis abuse, uncomplicated; Z88.8 Allergy status to other drugs, medicaments and biological substances
CPT/HCPCS: 83036; 84443

== ENCOUNTER 2019-02-24 09:59 | Inpatient (IN) | payer MEDICAID ==
[~2019-02-24] VITALS: Ht 182.9 cm; Wt 53.2 kg
[2019-02-24 11:46] LABS: BASOPHILS % (AUTO) 0.6 % (0.0-2.0); EOSINOPHILS % (AUTO) 1.9 % (1.0-6.0); HEMATOCRIT 37.2 % (41-53); LYMPHOCYTES # (AUTO) 0.9 K/uL (1.0-4.8); LYMPHOCYTES % (AUTO) 17.9 % (22.0-44.0); MEAN CORPUSCULAR HGB CONC 32.4 G/dL (31.0-37.0); MEAN CORPUSCULAR VOLUME 89 fL (80-100); MONOCYTES # (AUTO) 0.3 K/uL (0.1-1.0); MONOCYTES % (AUTO) 7.1 % (2.0-9.0); NEUTROPHILS # (AUTO) 3.4 K/uL (1.8-7.7); NEUTROPHILS % (AUTO) 72.5 % (40.0-70.0); PLATELET COUNT (AUTO) 250 K/uL (150-450); RED BLOOD CELL COUNT(AUTO) 4.16 MIL/uL (4.50-5.90)
[2019-02-24 11:58] LABS: ANION GAP 6 mmol/L (8-16); CALCIUM, TOTAL 9.1 mg/dL (8.8-10.5); CARBON DIOXIDE 28 mmol/L (22-29); CHLORIDE 102 mmol/L (98-107); CREATININE 0.66 mg/dL (0.60-1.30); GLOMERULAR FILTR. RATE CALC > 60 mL/min (>60); GLUCOSE,RANDOM 92 mg/dL (70-110); POTASSIUM 4.3 mmol/L (3.5-5.1); SODIUM SERUM 136 mmol/L (136-145); UREA NITROGEN, BLOOD 20 mg/dL (7-18)
[2019-02-24 12:12] LABS: ALANINE AMINOTRANSFERASE 20 U/L (12-78); ALBUMIN 3.3 g/dL (3.4-5.0); ALKALINE PHOSPHATASE 79 U/L (46-116); ASPARTATE AMINOTRANSFERASE 17 U/L (15-37); BILIRUBIN,TOTAL 0.3 mg/dL (0.1-1.0); TOTAL PROTEIN, SERUM 6.5 g/dL (6.4-8.2)
[2019-02-24 12:20] LABS: AMPHET/METH SCREEN,URINE POSITIVE (NEGATIVE); BARBITURATE SCREEN, URINE NEGATIVE (NEGATIVE); BENZODIAZEPINES SCREEN,URINE NEGATIVE (NEGATIVE); CANNABINOID SCREEN,URINE POSITIVE (NEGATIVE); COCAINE SCREEN,URINE NEGATIVE (NEGATIVE); METHADONE SCREEN, URINE NEGATIVE (NEGATIVE); OPIATE SCREEN,URINE NEGATIVE (NEGATIVE)
[2019-02-24 12:24] LABS: PHENCYCLIDINE SCREEN,URINE NEGATIVE (NEGATIVE)
[2019-02-24] MEDS ORDERED: BACITRACIN 0.9 GM PACKET OINTMENT TP ONE (12:45)
[2019-02-24] MEDS ORDERED: OLANZapine 5 MG TABLET PO ONE (14:45)
[2019-02-24] MEDS ORDERED: ZOLPIDEM TARTRATE 10 MG TABLET PO PRN (16:30)
[2019-02-24] MEDS: DIVALPROEX SODIUM 500 MG DR TABLET PO SCH (20:28)
[2019-02-24] MEDS: OLANZapine 10 MG TABLET PO SCH (20:28)
[2019-02-24 20:30] VITALS: BP 140/70
[2019-02-25] MEDS ORDERED: MAGNESIUM HYDROXIDE SUSPENSION 30 ML UDCUP PO PRN (07:15)
[2019-02-25] MEDS ORDERED: BACITRACIN 28.4 GM OINTMENT TP PRN (07:15)
[2019-02-25] MEDS ORDERED: ONDANSETRON HCL 4 MG TABLET PO PRN (07:15)
[2019-02-25] MEDS ORDERED: ACETAMINOPHEN 325 MG TABLET PO PRN (07:15)
[2019-02-25] MEDS ORDERED: CloNIDine HCL 0.1 MG TABLET PO PRN (07:15)
[2019-02-25] MEDS ORDERED: DOCUSATE SODIUM 100 MG CAPSULE PO PRN (07:15)
[2019-02-25] MEDS ORDERED: MAG HYDROX/AL HYDROX/SIMETH ES 30 ML SUSPENSION UDCUP PO PRN (07:15)
[2019-02-25] MEDS ORDERED: BENZOCAINE/MENTHOL LOZENGE MM PRN (07:15)
[2019-02-25] MEDS ORDERED: IBUPROFEN 600 MG TABLET PO PRN (07:15)
[2019-02-25] MEDS ORDERED: PETROLATUM,WHITE 28 GM JELLY TP PRN (07:15)
[2019-02-25] MEDS ORDERED: OMEPRAZOLE 20 MG CAPSULE PO PRN (07:15)
[2019-02-25] MEDS ORDERED: ALBUTEROL SULFATE HFA 90 MCG/PUFF 8 GM INHALER IH PRN (07:15)
[2019-02-25] MEDS ORDERED: LOPERAMIDE HCL 2 MG CAPSULE PO PRN (07:15)
[2019-02-25] MEDS: PARoxetine HCL 20 MG TABLET PO SCH (08:48)
[2019-02-25 08:54] VITALS: BP 154/91
[2019-02-25 16:45] VITALS: BP 134/87
[2019-02-25] MEDS: DIVALPROEX SODIUM 500 MG DR TABLET PO SCH (20:37)
[2019-02-25] MEDS: OLANZapine 10 MG TABLET PO SCH (20:37)
[2019-02-26] MEDS: OLANZapine 5 MG RAPDIS TABLET PO PRN (09:56)
[2019-02-26] MEDS: LORazepam 2 MG TABLET PO PRN (09:56)
[2019-02-26] MEDS: PARoxetine HCL 20 MG TABLET PO SCH (09:56)
[2019-02-26 14:58] VITALS: BP 140/100
[2019-02-26] MEDS: OLANZapine 10 MG TABLET PO SCH (21:12)
[2019-02-26] MEDS: DIVALPROEX SODIUM 500 MG DR TABLET PO SCH (21:12)
[2019-02-27] MEDS: PARoxetine HCL 20 MG TABLET PO SCH (08:36)
[2019-02-27] MEDS: LORazepam 2 MG TABLET PO PRN (08:36)
[2019-02-27] MEDS: OLANZapine 5 MG RAPDIS TABLET PO PRN (08:39)
[2019-02-27 09:11] VITALS: BP 133/98
[2019-02-27 18:17] VITALS: BP 121/69
[2019-02-27] MEDS: DIVALPROEX SODIUM 500 MG DR TABLET PO SCH (20:22)
[2019-02-27] MEDS: OLANZapine 10 MG TABLET PO SCH (20:22)
[2019-02-28] MEDS: PARoxetine HCL 20 MG TABLET PO SCH (09:00)
[2019-02-28 09:59] VITALS: BP 131/76
[2019-02-28 19:44] VITALS: BP 124/83
[2019-02-28] MEDS: DIVALPROEX SODIUM 500 MG DR TABLET PO SCH (20:47)
[2019-02-28] MEDS: OLANZapine 10 MG TABLET PO SCH (20:47)
[2019-03-01] MEDS: PARoxetine HCL 20 MG TABLET PO SCH (08:47)
[2019-03-01 14:23] VITALS: BP 125/84
[2019-03-01 16:26] VITALS: BP 121/77
[2019-03-01] MEDS: DIVALPROEX SODIUM 500 MG DR TABLET PO SCH (21:01)
[2019-03-01] MEDS: OLANZapine 10 MG TABLET PO SCH (21:02)
[2019-03-02] MEDS: PARoxetine HCL 20 MG TABLET PO SCH (08:48)
[2019-03-02] MEDS ORDERED: OLAN10TA3 PO (12:20)
[2019-03-02 14:00] VITALS: BP 143/74
== END 2019-03-02 14:25 | disposition home or self-care (01) | DRG 750 ==
LOC: EMS 10:02 → 3EC 16:26
PROVIDERS: ADMIT Psychiatry & Neurology Psychiatry; ATTEND Psychiatry & Neurology Psychiatry
DX: F20.0 Paranoid schizophrenia (principal); E44.0 Moderate protein-calorie malnutrition; R45.851 Suicidal ideations; E11.9 Type 2 diabetes mellitus without complications; Z59.0 Homelessness; D64.9 Anemia, unspecified; F12.90 Cannabis use, unspecified, uncomplicated; F10.20 Alcohol dependence, uncomplicated; G47.00 Insomnia, unspecified; F17.200 Nicotine dependence, unspecified, uncomplicated; K59.00 Constipation, unspecified; F14.90 Cocaine use, unspecified, uncomplicated; F15.90 Other stimulant use, unspecified, uncomplicated; F17.210 Nicotine dependence, cigarettes, uncomplicated; F32.9 Major depressive disorder, single episode, unspecified; J44.9 Chronic obstructive pulmonary disease, unspecified; Z88.8 Allergy status to other drugs, medicaments and biological substances; Z86.14 Personal history of Methicillin resistant Staphylococcus aureus infection; K21.9 Gastro-esophageal reflux disease without esophagitis; Z81.8 Family history of other mental and behavioral disorders; Z82.49 Family history of ischemic heart disease and other diseases of the circulatory system; Z68.1 Body mass index [BMI] 19.9 or less, adult
CPT/HCPCS: 83036; 87081; G0480

== ENCOUNTER 2019-09-06 15:22 | Inpatient (IN) | payer MEDICAID, OTHER ==
[~2019-09-06] VITALS: Ht 180.3 cm; Wt 58.1 kg
[~2019-09-06 15:22] MED LIST changes: -OLAN10TA20 PO; +OLAN10TA3 PO
[2019-09-06] MEDS ORDERED: ZOLPIDEM TARTRATE 10 MG TABLET PO PRN (19:45)
[2019-09-06] MEDS ORDERED: LORazepam 2 MG TABLET PO PRN (19:45)
[2019-09-06] MEDS ORDERED: OLANZapine 5 MG RAPDIS TABLET PO PRN (20:00)
[2019-09-06 20:01] VITALS: BP 128/87
[2019-09-06] MEDS ORDERED: PARO20TA24 PO (20:25)
[2019-09-06] MEDS ORDERED: DIVA500T52 PO (20:25)
[2019-09-06] MEDS ORDERED: NICOTINE 21 MG/24 HOUR PATCH TD PRN (20:30)
[2019-09-06] MEDS ORDERED: INFLUENZA VIRUS VACCINE QVS 2019-20 (3YR+)/PF 60 MCG/0.5 ML SYRINGE IM ONE (22:15)
[2019-09-06] MEDS ORDERED: PNEUMOCOCCAL VACCINE POLYVALENT 0.5 ML VIAL [PPSV23] IM ONE (22:15)
[2019-09-07 07:30] LABS: BASOPHILS % (AUTO) 1.1 % (0.0-2.0); HEMATOCRIT 36.9 % (41-53); HEMOGLOBIN 12.2 g/dL (13.5-17.5); LYMPHOCYTES % (AUTO) 20.8 % (22.0-44.0); MEAN CORPUSCULAR HEMOGLOBIN 30.1 pg (26.0-34.0); MEAN CORPUSCULAR HGB CONC 33.2 G/dL (31.0-37.0); MEAN CORPUSCULAR VOLUME 91 fL (80-100); MONOCYTES # (AUTO) 0.3 K/uL (0.1-1.0); MONOCYTES % (AUTO) 7.4 % (2.0-9.0); NEUTROPHILS # (AUTO) 3.2 K/uL (1.8-7.7); NEUTROPHILS % (AUTO) 66.7 % (40.0-70.0); PLATELET COUNT (AUTO) 265 K/uL (150-450); RED BLOOD CELL COUNT(AUTO) 4.06 MIL/uL (4.50-5.90); RED CELL DISTRIBUTION WIDTH 15.2 % (11.5-14.5)
[2019-09-07 07:51] LABS: ALANINE AMINOTRANSFERASE 24 U/L (12-78); ALBUMIN 3.1 g/dL (3.4-5.0); ALKALINE PHOSPHATASE 89 U/L (46-116); ANION GAP 5 mmol/L (8-16); ASPARTATE AMINOTRANSFERASE 14 U/L (15-37); BILIRUBIN,TOTAL 0.1 mg/dL (0.1-1.0); CALCIUM, TOTAL 8.9 mg/dL (8.8-10.5); CARBON DIOXIDE 31 mmol/L (22-29); CHLORIDE 105 mmol/L (98-107); CHOL/HDL RATIO 2.6 (4.2-7.3); CHOLESTEROL 135 mg/dL (131-200); CREATININE 0.63 mg/dL (0.60-1.30); FREE T4 (FREE THYROXINE) 0.85 ng/dL (0.76-1.46); GLOMERULAR FILTR. RATE CALC > 60 mL/min (>60); GLUCOSE,RANDOM 102 mg/dL (70-110); HDL CHOLESTEROL 51 mg/dL (40-60); LDL CHOL (CALC.) 78 mg/dL (0-130); POTASSIUM 4.5 mmol/L (3.5-5.1); SODIUM SERUM 141 mmol/L (136-145); THYROID STIMULATING HORMONE 1.82 uIU/mL (0.36-3.74); TOTAL PROTEIN, SERUM 6.6 g/dL (6.4-8.2); TRIGLYCERIDES 32 mg/dL (15-150); UREA NITROGEN, BLOOD 16 mg/dL (7-18)
[2019-09-07 07:55] LABS: VALPROIC ACID < 3 mcg/mL (50-100)
[2019-09-07] MEDS ORDERED: IBUPROFEN 600 MG TABLET PO PRN (08:15)
[2019-09-07] MEDS ORDERED: ONDANSETRON HCL 4 MG TABLET PO PRN (08:15)
[2019-09-07] MEDS ORDERED: ACETAMINOPHEN 325 MG TABLET PO PRN (08:15)
[2019-09-07] MEDS ORDERED: ALBUTEROL SULFATE HFA 90 MCG/PUFF 8 GM INHALER IH PRN (08:15)
[2019-09-07] MEDS ORDERED: MAG HYDROX/AL HYDROX/SIMETH ES 30 ML SUSPENSION UDCUP PO PRN (08:15)
[2019-09-07] MEDS ORDERED: CloNIDine HCL 0.1 MG TABLET PO PRN (08:15)
[2019-09-07] MEDS ORDERED: BACITRACIN 28.4 GM OINTMENT TP PRN (08:15)
[2019-09-07] MEDS ORDERED: MAGNESIUM HYDROXIDE SUSPENSION 30 ML UDCUP PO PRN (08:15)
[2019-09-07] MEDS ORDERED: BENZOCAINE/MENTHOL LOZENGE MM PRN (08:15)
[2019-09-07] MEDS ORDERED: LOPERAMIDE HCL 2 MG CAPSULE PO PRN (08:15)
[2019-09-07] MEDS ORDERED: PETROLATUM,WHITE 28 GM JELLY TP PRN (08:15)
[2019-09-07] MEDS: OMEPRAZOLE 20 MG CAPSULE PO SCH (12:24)
[2019-09-07] MEDS: DOCUSATE SODIUM 100 MG CAPSULE PO SCH (12:24)
[2019-09-07 16:09] VITALS: BP 146/89
[2019-09-08 06:33] VITALS: BP 142/95
[2019-09-08 08:16] VITALS: BP 124/89
[2019-09-08] MEDS: DOCUSATE SODIUM 100 MG CAPSULE PO SCH (08:27)
[2019-09-08] MEDS: OMEPRAZOLE 20 MG CAPSULE PO SCH (08:28)
[2019-09-08] MEDS ORDERED: PARoxetine HCL 20 MG TABLET PO SCH (09:00)
[2019-09-08] MEDS ORDERED: VALP250C48 PO (13:06)
[2019-09-08] MEDS ORDERED: OLAN10TA3 PO (13:09)
[2019-09-08] MEDS ORDERED: DIVALPROEX SODIUM 500 MG DR TABLET PO SCH (21:00)
[2019-09-08] MEDS ORDERED: OLANZapine 10 MG TABLET PO SCH (21:00)
== END 2019-09-08 14:27 | disposition home or self-care (01) | DRG 750 ==
LOC: B3A 19:54
PROVIDERS: ADMIT Psychiatry & Neurology Psychiatry; ATTEND Psychiatry & Neurology Psychiatry
DX: F25.9 Schizoaffective disorder, unspecified (principal); E44.0 Moderate protein-calorie malnutrition; D64.9 Anemia, unspecified; F17.200 Nicotine dependence, unspecified, uncomplicated; G47.00 Insomnia, unspecified; F19.10 Other psychoactive substance abuse, uncomplicated; J44.9 Chronic obstructive pulmonary disease, unspecified; K21.9 Gastro-esophageal reflux disease without esophagitis; K59.00 Constipation, unspecified; Z59.0 Homelessness; Z68.1 Body mass index [BMI] 19.9 or less, adult; Z23 Encounter for immunization; Z88.8 Allergy status to other drugs, medicaments and biological substances; Z72.89 Other problems related to lifestyle; Z71.41 Alcohol abuse counseling and surveillance of alcoholic
CPT/HCPCS: 84436; 84439; 84443; 90686

== ENCOUNTER 2020-01-04 17:55 | Emergency (ER) | payer MEDICAID ==
[~2020-01-04 17:55] MED LIST changes: -DIVA-78 PO; -PARO-37 PO; +PARO20TA24 PO; +VALP250C48 PO
== END 2020-01-04 18:32 | disposition left against medical advice (07) ==
LOC: EMS 17:55
DX: R05 Cough (principal); Z53.21 Procedure and treatment not carried out due to patient leaving prior to being seen by health care provider

== ENCOUNTER 2020-03-24 16:22 | Inpatient (IN) | payer MEDICAID ==
[~2020-03-24] VITALS: Ht 175.3 cm; Wt 51.0 kg
[2020-03-24 18:16] VITALS: BP 132/67
[2020-03-24] MEDS ORDERED: LORazepam 2 MG TABLET PO PRN (20:45)
[2020-03-24] MEDS ORDERED: OLANZapine 5 MG RAPDIS TABLET PO PRN (20:45)
[2020-03-24] MEDS ORDERED: ZOLPIDEM TARTRATE 10 MG TABLET PO PRN (20:45)
[2020-03-25 06:56] VITALS: BP 145/86
[2020-03-25] MEDS ORDERED: MAGNESIUM HYDROXIDE SUSPENSION 30 ML UDCUP PO PRN (08:00)
[2020-03-25] MEDS ORDERED: ONDANSETRON HCL 4 MG TABLET PO PRN (08:00)
[2020-03-25] MEDS ORDERED: IBUPROFEN 600 MG TABLET PO PRN (08:00)
[2020-03-25] MEDS ORDERED: BENZOCAINE/MENTHOL LOZENGE PO PRN (08:00)
[2020-03-25] MEDS ORDERED: OMEPRAZOLE 20 MG CAPSULE PO PRN (08:00)
[2020-03-25] MEDS ORDERED: CloNIDine HCL 0.1 MG TABLET PO PRN (08:00)
[2020-03-25] MEDS ORDERED: MAG HYDROX/AL HYDROX/SIMETH ES 30 ML SUSPENSION UDCUP PO PRN (08:00)
[2020-03-25] MEDS ORDERED: BACITRACIN 28 GM OINTMENT TP PRN (08:00)
[2020-03-25] MEDS ORDERED: PETROLATUM,WHITE 28 GM JELLY TP PRN (08:00)
[2020-03-25] MEDS ORDERED: LOPERAMIDE HCL 2 MG CAPSULE PO PRN (08:00)
[2020-03-25] MEDS ORDERED: DOCUSATE SODIUM 100 MG CAPSULE PO PRN (08:00)
[2020-03-25] MEDS ORDERED: ACETAMINOPHEN 325 MG TABLET PO PRN (08:00)
[2020-03-25] MEDS ORDERED: ALBUTEROL SULFATE HFA 90 MCG/PUFF 8 GM INHALER IH PRN (08:00)
[2020-03-25] MEDS: VALPROIC ACID 250 MG CAPSULE PO SCH ×2 (09:28→20:23)
[2020-03-25] MEDS: PARoxetine HCL 20 MG TABLET PO SCH (09:29)
[2020-03-25 10:22] VITALS: BP 148/84
[2020-03-25 17:32] VITALS: BP 109/72
[2020-03-25] MEDS: OLANZapine 10 MG TABLET PO SCH (20:23)
[2020-03-26 06:26] VITALS: BP 140/93
[2020-03-26 08:01] LABS: EOSINOPHILS % (AUTO) 6.4 % (1.0-6.0); HEMATOCRIT 39.2 % (41-53); HEMOGLOBIN 13.2 g/dL (13.5-17.5); LYMPHOCYTES # (AUTO) 1.2 K/uL (1.0-4.8); LYMPHOCYTES % (AUTO) 21.9 % (22.0-44.0); MEAN CORPUSCULAR HEMOGLOBIN 30.6 pg (26.0-34.0); MEAN CORPUSCULAR HGB CONC 33.7 G/dL (31.0-37.0); MEAN CORPUSCULAR VOLUME 91 fL (80-100); MONOCYTES # (AUTO) 0.3 K/uL (0.1-1.0); MONOCYTES % (AUTO) 5.9 % (2.0-9.0); NEUTROPHILS # (AUTO) 3.6 K/uL (1.8-7.7); NEUTROPHILS % (AUTO) 64.8 % (40.0-70.0); PLATELET COUNT (AUTO) 258 K/uL (150-450); RED BLOOD CELL COUNT(AUTO) 4.32 MIL/uL (4.50-5.90); RED CELL DISTRIBUTION WIDTH 14.7 % (11.5-14.5)
[2020-03-26 08:20] LABS: MAGNESIUM 1.9 mg/dL (1.80-2.40); PHOSPHORUS 4.1 mg/dL (2.5-4.9)
[2020-03-26 09:05] VITALS: BP 124/90
[2020-03-26] MEDS: PARoxetine HCL 20 MG TABLET PO SCH (09:19)
[2020-03-26] MEDS: VALPROIC ACID 250 MG CAPSULE PO SCH ×2 (09:19→20:12)
[2020-03-26 16:28] VITALS: BP 127/78
[2020-03-26] MEDS: OLANZapine 10 MG TABLET PO SCH (20:12)
[2020-03-27 04:49] VITALS: BP 159/98
[2020-03-27] MEDS: VALPROIC ACID 250 MG CAPSULE PO SCH ×2 (08:29→20:59)
[2020-03-27] MEDS: PARoxetine HCL 20 MG TABLET PO SCH (08:29)
[2020-03-27 08:40] VITALS: BP 130/80
[2020-03-27 16:00] VITALS: BP 102/69
[2020-03-27] MEDS: OLANZapine 10 MG TABLET PO SCH (20:59)
[2020-03-28 00:33] VITALS: BP 139/88
[2020-03-28] MEDS: VALPROIC ACID 250 MG CAPSULE PO SCH ×2 (08:20→21:03)
[2020-03-28] MEDS: PARoxetine HCL 20 MG TABLET PO SCH (08:20)
[2020-03-28 08:24] VITALS: BP 108/73
[2020-03-28 16:09] VITALS: BP 119/75
[2020-03-28] MEDS: OLANZapine 10 MG TABLET PO SCH (21:03)
[2020-03-29 06:10] VITALS: BP 128/75
[2020-03-29 08:06] VITALS: BP 138/84
[2020-03-29] MEDS: PARoxetine HCL 20 MG TABLET PO SCH (09:44)
[2020-03-29] MEDS: VALPROIC ACID 250 MG CAPSULE PO SCH ×2 (09:44→20:09)
[2020-03-29] MEDS: MULTIVITAMINS WITH MINERALS, THERAPEUTIC TABLET PO SCH (09:45)
[2020-03-29] MEDS: FOLIC ACID 1 MG TABLET PO SCH (09:45)
[2020-03-29 16:04] VITALS: BP 129/85
[2020-03-29] MEDS: OLANZapine 10 MG TABLET PO SCH (20:09)
[2020-03-30 07:06] VITALS: BP 120/80
[2020-03-30 08:01] LABS: ALANINE AMINOTRANSFERASE 23 U/L (12-78); ALBUMIN 3.1 g/dL (3.4-5.0); ALKALINE PHOSPHATASE 80 U/L (46-116); ANION GAP 1 mmol/L (8-16); ASPARTATE AMINOTRANSFERASE 13 U/L (15-37); BILIRUBIN,TOTAL 0.1 mg/dL (0.1-1.0); CARBON DIOXIDE 34 mmol/L (22-29); CHLORIDE 105 mmol/L (98-107); CREATININE 0.79 mg/dL (0.60-1.30); GLOMERULAR FILTR. RATE CALC > 60 mL/min (>60); GLUCOSE,RANDOM 88 mg/dL (70-110); POTASSIUM 4.8 mmol/L (3.5-5.1); SODIUM SERUM 140 mmol/L (136-145); TOTAL PROTEIN, SERUM 6.6 g/dL (6.4-8.2); UREA NITROGEN, BLOOD 24 mg/dL (7-18)
[2020-03-30 08:40] VITALS: BP 125/77
[2020-03-30] MEDS: VALPROIC ACID 250 MG CAPSULE PO SCH ×2 (09:35→20:06)
[2020-03-30] MEDS: MULTIVITAMINS WITH MINERALS, THERAPEUTIC TABLET PO SCH (09:35)
[2020-03-30] MEDS: PARoxetine HCL 20 MG TABLET PO SCH (09:35)
[2020-03-30] MEDS: FOLIC ACID 1 MG TABLET PO SCH (09:35)
[2020-03-30 16:19] VITALS: BP 121/89
[2020-03-30] MEDS: OLANZapine 10 MG TABLET PO SCH (20:06)
[2020-03-31 06:41] VITALS: BP 132/82
[2020-03-31] MEDS: MULTIVITAMINS WITH MINERALS, THERAPEUTIC TABLET PO SCH (08:16)
[2020-03-31] MEDS: VALPROIC ACID 250 MG CAPSULE PO SCH (08:16)
[2020-03-31] MEDS: PARoxetine HCL 20 MG TABLET PO SCH (08:16)
[2020-03-31] MEDS: FOLIC ACID 1 MG TABLET PO SCH (08:16)
[2020-03-31 08:20] VITALS: BP 127/63
[2020-03-31] MEDS ORDERED: OLAN10TA3 PO (12:57)
[2020-03-31] MEDS ORDERED: PARO10TA89 PO (12:57)
[2020-03-31] MEDS ORDERED: VALP250C48 PO (12:57)
== END 2020-03-31 13:15 | disposition home or self-care (01) | DRG 750 ==
LOC: B2S 20:33
DX: F25.1 Schizoaffective disorder, depressive type (principal); E44.0 Moderate protein-calorie malnutrition; F12.90 Cannabis use, unspecified, uncomplicated; F14.90 Cocaine use, unspecified, uncomplicated; F15.90 Other stimulant use, unspecified, uncomplicated; F17.200 Nicotine dependence, unspecified, uncomplicated; G47.00 Insomnia, unspecified; J44.9 Chronic obstructive pulmonary disease, unspecified; K21.9 Gastro-esophageal reflux disease without esophagitis; K59.00 Constipation, unspecified; R45.851 Suicidal ideations; Z59.0 Homelessness; Z88.8 Allergy status to other drugs, medicaments and biological substances
CPT/HCPCS: 83735; 84100

== ENCOUNTER 2020-03-24 18:58 | Emergency (ER) | payer MEDICAID ==
[~2020-03-24] VITALS: Ht 175.3 cm; Wt 60.0 kg
[2020-03-25 00:22] VITALS: BP 145/86
[2020-03-25] MEDS ORDERED: PNEUMOCOCCAL VACCINE POLYVALENT 0.5 ML VIAL [PPSV23] IM ONE (02:45)
== END 2020-03-24 21:54 | disposition home or self-care (01) ==
LOC: EMS 19:03 → B2S 22:37 → UNDOADMIN 22:37
DX: F25.9 Schizoaffective disorder, unspecified (principal); F17.210 Nicotine dependence, cigarettes, uncomplicated; Z20.828 Contact with and (suspected) exposure to other viral communicable diseases; Z59.0 Homelessness
CPT/HCPCS: 87426; Z7502

== ENCOUNTER 2020-04-05 18:19 | Inpatient (IN) | payer MEDICAID ==
[~2020-04-05] VITALS: Ht 175.3 cm; Wt 50.3 kg
[~2020-04-05 18:19] MED LIST changes: +PARO10TA89 PO; -PARO20TA24 PO
[2020-04-05] MEDS ORDERED: LORazepam 1 MG TABLET PO PRN (20:00)
[2020-04-05] MEDS ORDERED: ZOLPIDEM TARTRATE 10 MG TABLET PO PRN (20:00)
[2020-04-06 04:40] VITALS: BP 143/80
[2020-04-06 08:11] VITALS: BP 134/88
[2020-04-06] MEDS ORDERED: IBUPROFEN 600 MG TABLET PO PRN (08:30)
[2020-04-06] MEDS ORDERED: CloNIDine HCL 0.1 MG TABLET PO PRN (08:30)
[2020-04-06] MEDS ORDERED: ALBUTEROL SULFATE HFA 90 MCG/PUFF 8 GM INHALER IH PRN (08:30)
[2020-04-06] MEDS ORDERED: MAGNESIUM HYDROXIDE SUSPENSION 30 ML UDCUP PO PRN (08:30)
[2020-04-06] MEDS ORDERED: DOCUSATE SODIUM 100 MG CAPSULE PO PRN (08:30)
[2020-04-06] MEDS ORDERED: BENZOCAINE/MENTHOL LOZENGE PO PRN (08:30)
[2020-04-06] MEDS ORDERED: BACITRACIN 28 GM OINTMENT TP PRN (08:30)
[2020-04-06] MEDS ORDERED: LOPERAMIDE HCL 2 MG CAPSULE PO PRN (08:30)
[2020-04-06] MEDS ORDERED: ONDANSETRON HCL 4 MG TABLET PO PRN (08:30)
[2020-04-06] MEDS ORDERED: MAG HYDROX/AL HYDROX/SIMETH ES 30 ML SUSPENSION UDCUP PO PRN (08:30)
[2020-04-06] MEDS ORDERED: PETROLATUM,WHITE 28 GM JELLY TP PRN (08:30)
[2020-04-06] MEDS ORDERED: ACETAMINOPHEN 325 MG TABLET PO PRN (08:30)
[2020-04-06] MEDS ORDERED: OMEPRAZOLE 20 MG CAPSULE PO PRN (08:30)
[2020-04-06 16:12] VITALS: BP 134/92
[2020-04-06] MEDS: VALPROIC ACID 250 MG CAPSULE PO SCH (21:21)
[2020-04-06] MEDS: OLANZapine 10 MG TABLET PO SCH (21:21)
[2020-04-07 03:32] VITALS: BP 138/81
[2020-04-07 08:16] VITALS: BP 136/84
[2020-04-07] MEDS: VALPROIC ACID 250 MG CAPSULE PO SCH ×2 (09:06→20:23)
[2020-04-07 16:09] VITALS: BP 134/87
[2020-04-07] MEDS: OLANZapine 10 MG TABLET PO SCH (20:23)
[2020-04-08 01:46] VITALS: BP 139/80
[2020-04-08 08:38] VITALS: BP 134/78
[2020-04-08] MEDS: VALPROIC ACID 250 MG CAPSULE PO SCH ×2 (09:10→21:05)
[2020-04-08 16:31] VITALS: BP 131/81
[2020-04-08] MEDS: OLANZapine 10 MG TABLET PO SCH (21:05)
[2020-04-09 03:02] VITALS: BP 129/77
[2020-04-09] MEDS: VALPROIC ACID 250 MG CAPSULE PO SCH ×2 (08:46→20:15)
[2020-04-09 09:23] VITALS: BP 113/75
[2020-04-09] MEDS ORDERED: POTASSIUM CHLORIDE 20 MEQ ER TABLET PO ONE (12:15)
[2020-04-09 16:08] VITALS: BP 134/73
[2020-04-09] MEDS: OLANZapine 10 MG TABLET PO SCH (20:15)
[2020-04-10 06:52] VITALS: BP 129/70
[2020-04-10 09:08] VITALS: BP 131/80
[2020-04-10] MEDS: VALPROIC ACID 250 MG CAPSULE PO SCH (09:29)
== END 2020-04-10 14:50 | disposition home or self-care (01) | DRG 750 ==
LOC: B3A 19:30 → B2S 04-07 20:00
PROVIDERS: ADMIT Psychiatry & Neurology Psychiatry; ATTEND Psychiatry & Neurology Psychiatry
DX: F25.9 Schizoaffective disorder, unspecified (principal); E44.0 Moderate protein-calorie malnutrition; F12.90 Cannabis use, unspecified, uncomplicated; F14.90 Cocaine use, unspecified, uncomplicated; F15.90 Other stimulant use, unspecified, uncomplicated; F17.200 Nicotine dependence, unspecified, uncomplicated; G47.00 Insomnia, unspecified; J44.9 Chronic obstructive pulmonary disease, unspecified; K21.9 Gastro-esophageal reflux disease without esophagitis; K59.00 Constipation, unspecified; Z59.0 Homelessness; Z68.1 Body mass index [BMI] 19.9 or less, adult; Z72.89 Other problems related to lifestyle
CPT/HCPCS: 84132; 87081

== ENCOUNTER 2020-04-05 20:06 | Emergency (ER) | payer MEDICAID ==
[~2020-04-05] VITALS: Ht 177.8 cm; Wt 79.5 kg
[2020-04-05] MEDS ORDERED: LORazepam 2 MG TABLET PO ONE (22:45)
[2020-04-05 22:59] LABS: BASOPHILS % (AUTO) 0.7 % (0.0-2.0); EOSINOPHILS % (AUTO) 2.6 % (1.0-6.0); HEMATOCRIT 31.9 % (41-53); HEMOGLOBIN 10.6 g/dL (13.5-17.5); LYMPHOCYTES # (AUTO) 1.1 K/uL (1.0-4.8); LYMPHOCYTES % (AUTO) 19.2 % (22.0-44.0); MEAN CORPUSCULAR HEMOGLOBIN 30.3 pg (26.0-34.0); MEAN CORPUSCULAR HGB CONC 33.1 G/dL (31.0-37.0); MEAN CORPUSCULAR VOLUME 91 fL (80-100); MONOCYTES # (AUTO) 0.8 K/uL (0.1-1.0); MONOCYTES % (AUTO) 12.8 % (2.0-9.0); NEUTROPHILS # (AUTO) 3.9 K/uL (1.8-7.7); NEUTROPHILS % (AUTO) 64.7 % (40.0-70.0); PLATELET COUNT (AUTO) 210 K/uL (150-450); RED CELL DISTRIBUTION WIDTH 14.6 % (11.5-14.5)
[2020-04-05 23:15] LABS: ANION GAP 5 mmol/L (8-16); CALCIUM, TOTAL 8.4 mg/dL (8.8-10.5); CARBON DIOXIDE 34 mmol/L (22-29); CHLORIDE 107 mmol/L (98-107); CREATININE 0.86 mg/dL (0.60-1.30); GLOMERULAR FILTR. RATE CALC > 60 mL/min (>60); GLUCOSE,RANDOM 118 mg/dL (70-110); SODIUM SERUM 146 mmol/L (136-145); UREA NITROGEN, BLOOD 24 mg/dL (7-18)
[2020-04-05 23:18] LABS: COVID AG,FIA SOURCE NASOPHARYNGEAL
[2020-04-05 23:21] LABS: ALANINE AMINOTRANSFERASE 73 U/L (12-78); ALBUMIN 3.3 g/dL (3.4-5.0); ALKALINE PHOSPHATASE 103 U/L (46-116); ASPARTATE AMINOTRANSFERASE 62 U/L (15-37); BILIRUBIN,TOTAL 0.3 mg/dL (0.1-1.0); TOTAL PROTEIN, SERUM 6.9 g/dL (6.4-8.2)
[2020-04-05] MEDS ORDERED: POTASSIUM CHLORIDE 10% 40 MEQ/30 ML LIQUID UDCUP PO ONE (23:30)
[2020-04-06 03:05] VITALS: BP 144/100
== END 2020-04-06 03:10 | disposition home or self-care (01) ==
LOC: EMS 20:11
DX: F25.9 Schizoaffective disorder, unspecified (principal); Z20.828 Contact with and (suspected) exposure to other viral communicable diseases; R79.89 Other specified abnormal findings of blood chemistry; E87.6 Hypokalemia; F17.210 Nicotine dependence, cigarettes, uncomplicated; E11.9 Type 2 diabetes mellitus without complications; Z59.0 Homelessness
CPT/HCPCS: 36415; 80053; 85025; 87426; 99284; 99406; G0480